=== PATIENT | female | born 1935 | race Caucasian/White ===

== ENCOUNTER 2017-10-05 14:33 | Outpatient (CLI) | payer MEDICARE | END 2017-10-05 14:34 | disposition home or self-care (01) | LOC: BICMAMMO 14:33 | PROVIDERS: ATTEND Nurse Practitioner Family | DX: Z13.820 Encounter for screening for osteoporosis (principal) | CPT/HCPCS: 77080 ==

== ENCOUNTER 2022-02-28 09:39 | Outpatient (CLI) | payer MEDICARE ==
[~2022-02-28 09:39] MED LIST: Magnevist 469MG/ML 20 ML VIAL ONE
== END 2022-02-28 09:40 | disposition home or self-care (01) ==
LOC: BICMRI 09:39
PROVIDERS: ATTEND Orthopaedic Surgery Hand Surgery
DX: M65.221 Calcific tendinitis, right upper arm (principal); D49.2 Neoplasm of unspecified behavior of bone, soft tissue, and skin
CPT/HCPCS: 82565; A9579

== ENCOUNTER 2023-01-10 13:36 | Outpatient (CLI) | payer MEDICARE | END 2023-01-10 13:37 | disposition home or self-care (01) | LOC: RAD-FRANK 13:36 | PROVIDERS: ATTEND Nurse Practitioner Family | DX: R05.2 Subacute cough (principal); R91.8 Other nonspecific abnormal finding of lung field; I51.7 Cardiomegaly | CPT/HCPCS: 71046 ==

== ENCOUNTER 2023-01-13 00:57 | Inpatient (IN) | payer MEDICARE ==
[2023-01-13] MEDS ORDERED: Albuterol 2.5 MG/0.5 ML NEB ONE ×2 (01:57→01:58)
[2023-01-13 02:21] LABS: #Basophils 0.1 thou/uL (0.0-0.2); #Eosinphils 0.1 thou/uL (0.0-0.7); #Monocytes 0.8 thou/uL (0.11-0.59); #Neutrophils 7.8 thou/uL (1.40-6.50); %Basophils 0.9 % (0.0-1.0); %Eosinophils 1.2 % (0.0-10.0); %Lymphocytes 18.3 % (21.0-51.0); %Monocytes 7.1 % (0.0-10.0); %Neutrophils 72.5 % (42.0-75.0); Hemoglobin 14.3 g/dL (12.0-16.0); Mean Corpuscular HGB CONC 33.5 g/dL (32.0-36.0); Mean Corpuscular Hemoglobin 29.7 pg (27.0-31.0); Mean Corpuscular Volume 88.7 fl (78.0-98.0); Mean Platelet Volume 8.9 fL (7.4-10.4); Platelet Count 208 10x3/uL (130-400); RBC Distribution Width 13.6 % (11.5-14.5); Red Blood Cell (RBC) Count 4.81 mill/uL (4.20-5.40); White Blood Cell (WBC) Count 10.8 10x3/uL (4.8-10.8)
[2023-01-13 02:34] LABS: ALT (SGPT) 80 U/L (8-55); AST (SGOT) 91 U/L (5-34); Alkaline Phosphatase 69 U/L (40-110); Anion Gap 15 mmol/L (10-20); BUN (Urea Nitrogen) 20 mg/dL (9.8-20.1); Bilirubin, Total 0.6 mg/dL (0.2-1.2); Calc. Creatinine Clearance 0 mL/min (70-130); Calcium 9.3 mg/dL (7.8-10.44); Carbon Dioxide 25 mmol/L (23-31); Chloride 104 mmol/L (98-107); Estimated GFR 70; Globulin 3.1 g/dL (2.4-3.5); Glucose 126 mg/dL (83-110); Potassium 4.7 mmol/L (3.5-5.1); Protein, Total 7.1 g/dL (5.8-8.1); Sodium 139 mmol/L (136-145)
[2023-01-13] MEDS ORDERED: Furosemide 40 MG/4 ML VIAL ONE (04:08)
[2023-01-13] MEDS ORDERED: Ondansetron ODT 4 MG TAB PO PRN (05:12)
[2023-01-13] MEDS ORDERED: Acetaminophen 325 MG TAB PO PRN (05:12)
[2023-01-13] MEDS ORDERED: Senokot S 8.6-50 MG TAB PO PRN (05:12)
[2023-01-13 07:21] LABS: Troponin I Less than 0.010 ng/mL (< 0.028)
[2023-01-13] MEDS ORDERED: Aspirin Chewable 81 MG TAB ONE (09:20)
[2023-01-13] MEDS ORDERED: Famotidine 20 MG TAB ONE (09:20)
[2023-01-13] MEDS: Apixaban 5 MG TAB PO SCH ×2 (09:48→19:54)
[2023-01-13] MEDS: Famotidine 20 MG TAB PO SCH ×2 (09:49→19:54)
[2023-01-13] MEDS: Lisinopril 2.5 MG TAB PO SCH (09:49)
[2023-01-13] MEDS: Aspirin Chewable 81 MG TAB PO SCH (09:49)
[2023-01-13] MEDS: Carvedilol 6.25 MG TAB PO SCH ×2 (09:49→19:55)
[2023-01-13 10:21] LABS: Troponin I Less than 0.010 ng/mL (< 0.028)
[2023-01-13 12:45] LABS: SARS-CoV-2 NAA Rapid Test Not Detected (NotDetected)
[2023-01-13] MEDS ORDERED: Iopamidol-370 76% 500 ML MDV (1 ML CHARGE) ONE (14:08)
[2023-01-13] MEDS: Azithromycin 250 MG TAB PO SCH (18:09)
[2023-01-13 19:47] LABS: Legionella Urinary Ag Negative (Negative); Strep pneumo Urine Ag NEGATIVE (NEGATIVE)
[2023-01-14 05:29] LABS: #Basophils 0.1 thou/uL (0.0-0.2); #Eosinphils 0.1 thou/uL (0.0-0.7); #Lymphocytes 2.3 thou/uL (1.20-3.40); #Monocytes 0.7 thou/uL (0.11-0.59); #Neutrophils 4.4 thou/uL (1.40-6.50); %Eosinophils 1.5 % (0.0-10.0); %Lymphocytes 29.9 % (21.0-51.0); %Monocytes 8.6 % (0.0-10.0); Hemoglobin 13.6 g/dL (12.0-16.0); Mean Corpuscular HGB CONC 33.4 g/dL (32.0-36.0); Mean Corpuscular Hemoglobin 29.5 pg (27.0-31.0); Mean Corpuscular Volume 88.2 fl (78.0-98.0); Mean Platelet Volume 8.4 fL (7.4-10.4); Platelet Count 190 10x3/uL (130-400); RBC Distribution Width 13.3 % (11.5-14.5); Red Blood Cell (RBC) Count 4.63 mill/uL (4.20-5.40); White Blood Cell (WBC) Count 7.5 10x3/uL (4.8-10.8)
[2023-01-14 05:34] LABS: Hemoglobin A1c 5.4 % (4.0-6.0)
[2023-01-14 05:54] LABS: ALT (SGPT) 50 U/L (8-55); AST (SGOT) 36 U/L (5-34); Albumin 3.6 g/dL (3.4-4.8); Alkaline Phosphatase 59 U/L (40-110); Anion Gap 12 mmol/L (10-20); BUN (Urea Nitrogen) 15 mg/dL (9.8-20.1); Bilirubin, Direct 0.3 mg/dL (0.1-0.3); Bilirubin, Total 0.7 mg/dL (0.2-1.2); Calc. Creatinine Clearance 56 mL/min (70-130); Calcium 8.9 mg/dL (7.8-10.44); Carbon Dioxide 26 mmol/L (23-31); Cardiac Risk 3.2 (Less than 4.5); Chloride 105 mmol/L (98-107); Cholesterol 189 mg/dl (< 200 Desired); Estimated GFR 78; Glucose 97 mg/dL (83-110); HDL Cholesterol 60 mg/dL (>60 Neg Risk); LDL Cholesterol, Calculated 110 mg/dL; Magnesium 2.2 mg/dL (1.6-2.6); Potassium 3.6 mmol/L (3.5-5.1); Protein, Total 6.2 g/dL (5.8-8.1); Sodium 139 mmol/L (136-145); Triglycerides 95 mg/dL (Less than 150)
[2023-01-14 06:11] LABS: HBCM Index 0.08 S/CO (0-0.79); HBSAg Index 0.22 S/CO (0-0.99); Hep A IgM AB Non-Reactive (NonReactive); Hep B Surf Ag Non-Reactive S/CO (NonReactive); Hepatitis B Core IgM Abs Non-Reactive (NonReactive)
[2023-01-14] MEDS: Lisinopril 2.5 MG TAB PO SCH (09:46)
[2023-01-14] MEDS: Aspirin Chewable 81 MG TAB PO SCH (09:47)
[2023-01-14] MEDS: Carvedilol 6.25 MG TAB PO SCH ×2 (09:47→21:34)
[2023-01-14] MEDS: Famotidine 20 MG TAB PO SCH ×2 (09:48→21:34)
[2023-01-14] MEDS: Montelukast Sodium 10 mg Tablet PO SCH (09:48)
[2023-01-14] MEDS: Apixaban 5 MG TAB PO SCH ×2 (09:49→21:34)
[2023-01-14] MEDS: Furosemide 20 MG/2 ML VIAL SLOW IVP SCH (09:50)
[2023-01-14 12:12] VITALS: BMI 25.8
[2023-01-14] MEDS ORDERED: Albuterol HFA (OR) 200 PUFF INH INH PRN (13:45)
[2023-01-14] MEDS: Azithromycin 250 MG TAB PO SCH (16:05)
[2023-01-14] MEDS: Latanoprost 0.005% Ophth Soln 2.5 ml Bottle EA EYE SCH (21:35)
[2023-01-15 05:12] LABS: #Basophils 0.1 thou/uL (0.0-0.2); #Eosinphils 0.2 thou/uL (0.0-0.7); #Lymphocytes 2.8 thou/uL (1.20-3.40); #Monocytes 0.7 thou/uL (0.11-0.59); #Neutrophils 4.5 thou/uL (1.40-6.50); %Eosinophils 1.8 % (0.0-10.0); %Lymphocytes 33.9 % (21.0-51.0); %Monocytes 8.8 % (0.0-10.0); %Neutrophils 54.5 % (42.0-75.0); Hemoglobin 14.3 g/dL (12.0-16.0); Mean Corpuscular HGB CONC 32.8 g/dL (32.0-36.0); Mean Corpuscular Volume 88.3 fl (78.0-98.0); Mean Platelet Volume 8.5 fL (7.4-10.4); Platelet Count 211 10x3/uL (130-400); RBC Distribution Width 13.2 % (11.5-14.5); Red Blood Cell (RBC) Count 4.95 mill/uL (4.20-5.40); White Blood Cell (WBC) Count 8.2 10x3/uL (4.8-10.8)
[2023-01-15] MEDS: Levothyroxine Sodium 75 MCG TAB PO SCH (05:25)
[2023-01-15 05:32] LABS: Anion Gap 11 mmol/L (10-20); BUN (Urea Nitrogen) 18 mg/dL (9.8-20.1); Calc. Creatinine Clearance 48 mL/min (70-130); Calcium 8.8 mg/dL (7.8-10.44); Carbon Dioxide 27 mmol/L (23-31); Chloride 105 mmol/L (98-107); Estimated GFR 69; Glucose 104 mg/dL (83-110); Magnesium 2.1 mg/dL (1.6-2.6); Potassium 3.6 mmol/L (3.5-5.1); Sodium 139 mmol/L (136-145)
[2023-01-15] MEDS: Montelukast Sodium 10 mg Tablet PO SCH (09:41)
[2023-01-15] MEDS: Lisinopril 2.5 MG TAB PO SCH (09:41)
[2023-01-15] MEDS: Furosemide 20 MG/2 ML VIAL SLOW IVP SCH (09:42)
[2023-01-15] MEDS: Apixaban 5 MG TAB PO SCH ×2 (09:42→21:06)
[2023-01-15] MEDS: Famotidine 20 MG TAB PO SCH ×2 (09:42→21:06)
[2023-01-15] MEDS: Aspirin Chewable 81 MG TAB PO SCH (09:42)
[2023-01-15] MEDS: Carvedilol 6.25 MG TAB PO SCH ×2 (09:42→21:07)
[2023-01-15] MEDS: Azithromycin 250 MG TAB PO SCH (16:13)
[2023-01-15] MEDS: Latanoprost 0.005% Ophth Soln 2.5 ml Bottle EA EYE SCH (21:07)
[2023-01-16 05:02] LABS: #Basophils 0.1 thou/uL (0.0-0.2); #Eosinphils 0.1 thou/uL (0.0-0.7); #Lymphocytes 2.8 thou/uL (1.20-3.40); #Monocytes 0.6 thou/uL (0.11-0.59); #Neutrophils 4.2 thou/uL (1.40-6.50); %Basophils 1.2 % (0.0-1.0); %Eosinophils 1.8 % (0.0-10.0); %Lymphocytes 35.5 % (21.0-51.0); %Monocytes 7.8 % (0.0-10.0); %Neutrophils 53.7 % (42.0-75.0); Hemoglobin 14.7 g/dL (12.0-16.0); Mean Corpuscular Hemoglobin 28.1 pg (27.0-31.0); Mean Corpuscular Volume 87.6 fl (78.0-98.0); Mean Platelet Volume 8.5 fL (7.4-10.4); Platelet Count 215 10x3/uL (130-400); RBC Distribution Width 13.2 % (11.5-14.5); Red Blood Cell (RBC) Count 5.22 mill/uL (4.20-5.40); White Blood Cell (WBC) Count 7.9 10x3/uL (4.8-10.8)
[2023-01-16 05:25] LABS: Anion Gap 13 mmol/L (10-20); BUN (Urea Nitrogen) 23 mg/dL (9.8-20.1); Calc. Creatinine Clearance 48 mL/min (70-130); Calcium 8.9 mg/dL (7.8-10.44); Carbon Dioxide 26 mmol/L (23-31); Chloride 104 mmol/L (98-107); Estimated GFR 69; Glucose 98 mg/dL (83-110); Magnesium 2.3 mg/dL (1.6-2.6); Potassium 3.7 mmol/L (3.5-5.1); Sodium 139 mmol/L (136-145)
[2023-01-16] MEDS: Levothyroxine Sodium 75 MCG TAB PO SCH (05:39)
[2023-01-16] MEDS: Aspirin Chewable 81 MG TAB PO SCH (09:09)
[2023-01-16] MEDS: Carvedilol 6.25 MG TAB PO SCH (09:09)
[2023-01-16] MEDS: Famotidine 20 MG TAB PO SCH (09:09)
[2023-01-16] MEDS: Apixaban 5 MG TAB PO SCH (09:09)
[2023-01-16] MEDS: Furosemide 20 MG/2 ML VIAL SLOW IVP SCH (09:10)
[2023-01-16] MEDS: Lisinopril 2.5 MG TAB PO SCH (09:10)
[2023-01-16] MEDS: Montelukast Sodium 10 mg Tablet PO SCH (11:10)
[2023-01-16 11:27] VITALS: BP 137/88; TEMP 97.7
[2023-01-17 12:07] LABS: Hep C IgG Ab Non-Reactive (NonReactive); Hep C Index 0.09 S/CO (0-0.79)
== END 2023-01-16 15:58 | disposition home or self-care (01) | DRG 291 ==
LOC: ERS 00:57 → ERHOLD 04:24 → 2NO 14:17
PROVIDERS: ADMIT Student in an Organized Health Care Education/Training Program; ATTEND Family Medicine
DX: I11.0 Hypertensive heart disease with heart failure (principal); I50.21 Acute systolic (congestive) heart failure; I48.0 Paroxysmal atrial fibrillation; E03.9 Hypothyroidism, unspecified; I34.0 Nonrheumatic mitral (valve) insufficiency; R73.9 Hyperglycemia, unspecified; Z88.0 Allergy status to penicillin; Z79.899 Other long term (current) drug therapy; Z79.890 Hormone replacement therapy
CPT/HCPCS: 36415; 71045; 71046; 71275; 76705; 80048; 80053; 80061; 80074; 80076; 83036; 83735; 83880; 84145; 84443; 84484; 85025; 87081; 87449; 87899; 93005; 93306; 93798; 94640; 96374; J1940; J7611; Q9967

== ENCOUNTER 2023-06-30 07:56 | Day surgery (SDC) | payer MEDICARE ==
[2023-06-28 12:07] VITALS: BMI 24.4
[2023-06-28 12:28] LABS: Anion Gap 15 mmol/L (10-20); BUN (Urea Nitrogen) 20 mg/dL (9.8-20.1); Calc. Creatinine Clearance 33 mL/min (70-130); Calcium 8.7 mg/dL (7.8-10.44); Carbon Dioxide 29 mmol/L (23-31); Chloride 101 mmol/L (98-107); Estimated GFR 45; Glucose 102 mg/dL (83-110); Potassium 4.2 mmol/L (3.5-5.1); Sodium 141 mmol/L (136-145)
[2023-06-28 12:30] LABS: Hemoglobin 12.3 g/dL (12.0-15.5); Mean Corpuscular HGB CONC 31.5 g/dL (32.0-36.0); Mean Corpuscular Hemoglobin 28.1 pg (27.0-33.0); Mean Corpuscular Volume 89.2 fl (81.6-98.3); Mean Platelet Volume 9.5 fl (7.4-10.4); Platelet Count 259 10x3/uL (150-450); RBC Distribution Width 13.8 % (11.5-14.5); Red Blood Cell (RBC) Count 4.37 10x6/uL (3.90-5.03); White Blood Cell (WBC) Count 6.7 10x3/uL (3.5-10.5)
[2023-06-28 12:53] LABS: INR-International Normal Ratio 1.1; PTT 32.4 sec (22.0-33.0)
[2023-06-30] MEDS ORDERED: Lidocaine 1% (PF) 30 ML VIAL ONE (08:31)
[2023-06-30] MEDS ORDERED: Heparin 10,000 UNITS/ 10 ML VIAL ONE (08:31)
[2023-06-30] MEDS ORDERED: DOPamine 400 MG/D5W 250 ML 250 ML ONE (08:31)
[2023-06-30] MEDS ORDERED: Protamine Sulfate 50 MG/5 ML VIAL ONE (08:31)
[2023-06-30] MEDS ORDERED: Midazolam HCl 2 mg/2 ml Vial ONE (09:25)
[2023-06-30] MEDS ORDERED: Dexmedetomidine 200 MCG/2 ML VIAL ONE (09:25)
[2023-06-30] MEDS ORDERED: fentaNYL 50 mcg/mL 1 mL Vial ONE (09:25)
[2023-06-30] MEDS ORDERED: Ketamine 50 MG/ML (10ML VIAL) ONE (09:25)
[2023-06-30] MEDS ORDERED: Lidocaine 1% PF 5 ML VIAL ONE (10:09)
[2023-06-30] MEDS ORDERED: Ondansetron PF 4 MG/2 ML Vial ONE (10:09)
[2023-06-30] MEDS ORDERED: PHENYLEPHRINE-NS 100 MCG/ML 10 ML SYRINGE ONE (10:09)
[2023-06-30] MEDS ORDERED: PROPOFOL 200 MG/20 ML VIAL ONE (10:09)
== END 2023-06-30 15:42 | disposition home or self-care (01) ==
LOC: SDC 07:56
PROVIDERS: ATTEND Internal Medicine Cardiovascular Disease
PROC: 02583ZZ Destruction of Conduction Mechanism, Percutaneous Approach (ICD-10-PCS; principal; 2023-06-30)
DX: I48.19 Other persistent atrial fibrillation (principal); I48.4 Atypical atrial flutter; I11.0 Hypertensive heart disease with heart failure; I50.30 Unspecified diastolic (congestive) heart failure; Z79.01 Long term (current) use of anticoagulants; I08.3 Combined rheumatic disorders of mitral, aortic and tricuspid valves; Z95.0 Presence of cardiac pacemaker; Z79.890 Hormone replacement therapy; Z79.899 Other long term (current) drug therapy; Z88.0 Allergy status to penicillin
CPT/HCPCS: 80048; 85027; 85610; 85730; 93005; 93650; C1760; J3010; 36556; 93613; C1894; J1265; J1644; J2001; J2250; J2405; J2704; J2720

== ENCOUNTER 2023-08-02 12:01 | Inpatient (IN) | payer MEDICARE ==
[~2023-08-02 12:01] MED LIST changes: +Iopamidol-370 76% 500 ML MDV (1 ML CHARGE) ONE; -Magnevist 469MG/ML 20 ML VIAL ONE
[2023-08-02 12:29] LABS: #Monocytes 0.8 thou/uL (0.11-0.59); #Neutrophils 9.4 thou/uL (1.40-6.50); %Basophils 0.2 % (0.0-1.0); %Eosinophils 0.1 % (0.0-10.0); %Neutrophils 83.2 % (42.0-75.0); Hematocrit 40.3 % (36.0-47.0); Hemoglobin 12.6 g/dL (12.0-16.0); Mean Corpuscular HGB CONC 31.3 g/dL (32.0-36.0); Mean Corpuscular Hemoglobin 27.5 pg (27.0-31.0); Mean Corpuscular Volume 87.8 fl (78.0-98.0); Mean Platelet Volume 9.5 fL (7.4-10.4); Platelet Count 312 10x3/uL (130-400); RBC Distribution Width 14.1 % (11.5-14.5); Red Blood Cell (RBC) Count 4.59 mill/uL (4.20-5.40); White Blood Cell (WBC) Count 11.2 10x3/uL (4.8-10.8)
[2023-08-02 13:00] LABS: Troponin I 0.013 ng/mL (< 0.028)
[2023-08-02 13:04] LABS: ALT (SGPT) 28 U/L (8-55); AST (SGOT) 25 U/L (5-34); Albumin 4.5 g/dL (3.4-4.8); Alkaline Phosphatase 77 U/L (40-110); Anion Gap 16 mmol/L (10-20); BUN (Urea Nitrogen) 55 mg/dL (9.8-20.1); Bilirubin, Total 0.7 mg/dL (0.2-1.2); Calc. Creatinine Clearance 0 mL/min (70-130); Calcium 9.5 mg/dL (7.8-10.44); Carbon Dioxide 33 mmol/L (23-31); Chloride 88 mmol/L (98-107); Estimated GFR 28; Globulin 2.8 g/dL (2.4-3.5); Glucose 145 mg/dL (83-110); Potassium 4.7 mmol/L (3.5-5.1); Protein, Total 7.3 g/dL (5.8-8.1); Sodium 132 mmol/L (136-145)
[2023-08-02 14:31] LABS: Actual Bicarbonate (HCO3v) 30.1 mEq/L (22-28); Base Excess 5.3 mEq/L (-2.0 to +3.0); Chloride (VBG) 90 mmol/L (98-106); Hematocrit-VBG 37 % (36.0-47.0); Hemoglobin (Hb) 12.5 g/dL (11.7-16.1); Potassium (VBG) 4.58 mmol/L (3.70-5.30); Sodium 129 mmol/L (133-146); pH (venous) 7.445 (7.32-7.43)
[2023-08-02] MEDS ORDERED: Furosemide 40 MG/4 ML VIAL ONE (14:35)
[2023-08-02 14:40] LABS: PTT 36.8 sec (22.9-36.1); Prothrombin Time 25.3 sec (12.0-14.7)
[2023-08-02 14:47] LABS: INR-International Normal Ratio 2.2
[2023-08-02] MEDS ORDERED: Bupivacaine PF 0.5% 30 ML VIAL ONE (16:54)
[2023-08-02] MEDS ORDERED: [UNRECOGNIZED DRUG - OTHER] IV SCH (17:00)
[2023-08-02] MEDS ORDERED: HUMAN PROTHROMBIN COMPLX IV SCH (17:00)
[2023-08-02] MEDS ORDERED: HUM PROTHROMBIN CPLX IV SCH (17:00)
[2023-08-02] MEDS ORDERED: Midazolam HCl 2 mg/2 ml Vial ONE (17:01)
[2023-08-02] MEDS ORDERED: KETAMINE 100 MG/ML (5ML VIAL) ONE (17:01)
[2023-08-02] MEDS ORDERED: fentaNYL PF 100 MCG/2 ML SYRINGE ONE (17:01)
[2023-08-02 17:03] LABS: Magnesium 2.4 mg/dL (1.6-2.6)
[2023-08-02 17:08] LABS: Troponin I 0.013 ng/mL (< 0.028)
[2023-08-02] MEDS ORDERED: PHENYLEPHRINE-NS 100 MCG/ML 10 ML SYRINGE ONE (17:19)
[2023-08-02] MEDS ORDERED: ePHEDrine Sulfate 50 MG/10 ML VIAL ONE (17:19)
[2023-08-02] MEDS ORDERED: Ondansetron PF 4 MG/2 ML Vial ONE (17:19)
[2023-08-02] MEDS ORDERED: Aminocaproic Acid 5 GM/20 ML VIAL ONE (17:19)
[2023-08-02] MEDS ORDERED: Potassium Chloride 60 MEQ/30 ML VIAL ONE (17:19)
[2023-08-02] MEDS ORDERED: Vancomycin 1 GM VIAL ONE (17:19)
[2023-08-02] MEDS ORDERED: Sodium Bicarb 50 MEQ/50 ML VIAL ONE (17:19)
[2023-08-02] MEDS ORDERED: Protamine Sulfate 250 MG/25 ML VIAL ONE (17:19)
[2023-08-02] MEDS ORDERED: Albuterol HFA (OR) 200 PUFF INH ONE (17:19)
[2023-08-02] MEDS ORDERED: Rocuronium Bromide 10 MG/ML (10ML VIAL) ONE (17:19)
[2023-08-02] MEDS ORDERED: PROPOFOL 200 MG/20 ML VIAL ONE (17:19)
[2023-08-02] MEDS ORDERED: Succinylcholine 200 MG/10 ml SYRINGE FS ONE (17:19)
[2023-08-02] MEDS ORDERED: Heparin 30,000 units/30 ml VIAL ONE (17:19)
[2023-08-02] MEDS ORDERED: NOREPINEPHRINE 8 MG/250 ML-D5W 250 ML IVPB PRN (18:28)
[2023-08-02] MEDS ORDERED: Ipratropium/Albuterol 3 ML NEB NEB PRN (18:28)
[2023-08-02] MEDS ORDERED: Ventilator Sedation Protocol 1 EACH FS SCH (18:30)
[2023-08-02] MEDS ORDERED: Ventilator Sedation Protocol 1 EACH FS ONE (18:32)
[2023-08-02] MEDS ORDERED: DISCONTINUE PREVIOUS NARCOTIC PAIN MEDICATIONS AND BENZODIAZEPINES FS SCH (19:00)
[2023-08-02] MEDS ORDERED: Morphine 2 MG/ML VIAL SLOW IVP PRN (19:00)
[2023-08-02] MEDS ORDERED: Fentanyl BOLUS 250 ML IVPB PRN (19:00)
[2023-08-02] MEDS ORDERED: Propofol BOLUS 1,000 MG/100 ML VIAL IV PRN (19:00)
[2023-08-02] MEDS ORDERED: Propofol 1,000 MG/100 ML VIAL IV PRN (19:00)
[2023-08-02 19:01] LABS: Actual Bicarbonate (HCO3a) 26.3 mEq/L (22-28); Base Excess (BEa) 5.9 mEq/L (-2.0 to +3.0); CO2 Tension 25.2 mmHg (35.0-45.0); Calcium, Ionized (arterial) 0.99 mmol/L (1.12-1.30); Carboxyhemoglobin (COHb) 0.5 gm% (0.0-3.0); Hematocrit-ABG 31 % (36.0-47.0); Hemoglobin (Hb) 10.6 g/dL (12.0-16.0); O2 Tension (PaO2), arterial 492.4 mmHg (> 60.0); Potassium - ABG Lab 3.65 mmol/L (3.70-5.30)
[2023-08-02 19:04] LABS: Puncture Site LBA; pH, Arterial 7.637 (7.35-7.45)
[2023-08-02] MEDS: Sodium Chloride 0.9% 1,000 ML IV SCH (19:05)
[2023-08-02] MEDS ORDERED: Calcium Chloride 1 GM/10 ML Abboject SYRINGE IVP SCH (19:30)
[2023-08-02] MEDS ORDERED: Electrolyte Replacement Protocol 1 EACH IVPB PRN (19:44)
[2023-08-02] MEDS ORDERED: Fentanyl 100 MCG/2 ML VIAL SLOW IVP SCH (19:45)
[2023-08-02 20:00] LABS: #Monocytes 0.5 thou/uL (0.11-0.59); #Neutrophils 5.5 thou/uL (1.40-6.50); %Basophils 0.1 % (0.0-1.0); %Eosinophils 0.1 % (0.0-10.0); %Lymphocytes 10.8 % (21.0-51.0); %Monocytes 6.6 % (0.0-10.0); %Neutrophils 81.7 % (42.0-75.0); Hematocrit 35.2 % (36.0-47.0); Hemoglobin 11.2 g/dL (12.0-16.0); Mean Corpuscular HGB CONC 31.8 g/dL (32.0-36.0); Mean Corpuscular Hemoglobin 27.6 pg (27.0-31.0); Mean Corpuscular Volume 86.7 fl (78.0-98.0); Mean Platelet Volume 9.9 fL (7.4-10.4); Red Blood Cell (RBC) Count 4.06 mill/uL (4.20-5.40); White Blood Cell (WBC) Count 6.8 10x3/uL (4.8-10.8)
[2023-08-02 20:01] LABS: Platelet Count 208 10x3/uL (130-400)
[2023-08-02 20:06] LABS: INR-International Normal Ratio 1.8; PTT 35.3 sec (22.9-36.1); Prothrombin Time 21.9 sec (12.0-14.7)
[2023-08-02 20:11] LABS: Troponin I 0.012 ng/mL (< 0.028)
[2023-08-02] MEDS ORDERED: Acetaminophen 650 MG/20.3 ML UDCUP PO PRN (20:27)
[2023-08-02 20:41] LABS: ALT (SGPT) 24 U/L (8-55); AST (SGOT) 30 U/L (5-34); Albumin 3.2 g/dL (3.4-4.8); Alkaline Phosphatase 58 U/L (40-110); Anion Gap 18 mmol/L (10-20); BUN (Urea Nitrogen) 45 mg/dL (9.8-20.1); Bilirubin, Total 0.4 mg/dL (0.2-1.2); Calc. Creatinine Clearance 0 mL/min (70-130); Calcium 8.1 mg/dL (7.8-10.44); Carbon Dioxide 24 mmol/L (23-31); Chloride 95 mmol/L (98-107); Estimated GFR 40; Globulin 1.9 g/dL (2.4-3.5); Glucose 131 mg/dL (83-110); Potassium 4.1 mmol/L (3.5-5.1); Protein, Total 5.1 g/dL (5.8-8.1); Sodium 133 mmol/L (136-145)
[2023-08-02] MEDS: Fentanyl CADD 100 ML IV SCH (20:57)
[2023-08-02] MEDS: Famotidine/PF 20 mg/2ml Vial SLOW IVP SCH (21:08)
[2023-08-02] MEDS ORDERED: NOREPINEPHRINE 8 MG/250 ML-D5W 250 ML ONE (21:23)
[2023-08-02 21:55] LABS: Bacteria/HPF None Seen HPF (None Seen); Bilirubin Negative (Negative); Blood, Urine Negative (Negative); Clarity Clear (Clear); Glucose, Urine (Dipstick) Normal (Negative); Ketone, Urine Negative (Negative); Leukocyte Negative Leu/uL (Negative); Nitrite Negative (Negative); Protein, Urine (Dipstick) Negative (Neg-Trace); RBC/HPF 0-3 HPF (0-3); Specific Gravity, Urine 1.009 (1.002-1.036); Squamous Epithelial None Seen HPF (0-3); Urobilinogen Normal mg/dL (Less than 2); WBC/HPF 0-3 HPF (0-3)
[2023-08-02] MEDS ORDERED: Albumin 5% 500 ML ONE (22:55)
[2023-08-02] MEDS ORDERED: EPINEPHrine 4 MG in Dextrose 5% in Water 250 ML IV SCH (23:00)
[2023-08-02] MEDS ORDERED: Sodium Chloride 0.9% 500 ML IVPB SCH (23:00)
[2023-08-02 23:05] LABS: #Monocytes 1.5 thou/uL (0.11-0.59); #Neutrophils 14.2 thou/uL (1.40-6.50); %Basophils 0.2 % (0.0-1.0); %Eosinophils 0.1 % (0.0-10.0); %Monocytes 7.7 % (0.0-10.0); %Neutrophils 73.5 % (42.0-75.0); Hematocrit 33.4 % (36.0-47.0); Hemoglobin 10.7 g/dL (12.0-16.0); Mean Corpuscular Hemoglobin 27.7 pg (27.0-31.0); Mean Corpuscular Volume 86.5 fl (78.0-98.0); Mean Platelet Volume 9.9 fL (7.4-10.4); Platelet Count 275 10x3/uL (130-400); RBC Distribution Width 14.1 % (11.5-14.5); Red Blood Cell (RBC) Count 3.86 mill/uL (4.20-5.40)
[2023-08-02 23:09] LABS: White Blood Cell (WBC) Count 19.2 10x3/uL (4.8-10.8)
[2023-08-02 23:10] LABS: Lactic Acid 2.8 mmol/L (0.5-2.2)
[2023-08-02 23:15] LABS: ALT (SGPT) 23 U/L (8-55); AST (SGOT) 25 U/L (5-34); Albumin 2.9 g/dL (3.4-4.8); Alkaline Phosphatase 51 U/L (40-110); Anion Gap 15 mmol/L (10-20); BUN (Urea Nitrogen) 43 mg/dL (9.8-20.1); Bilirubin, Total 0.5 mg/dL (0.2-1.2); Calc. Creatinine Clearance 0 mL/min (70-130); Carbon Dioxide 28 mmol/L (23-31); Chloride 96 mmol/L (98-107); Estimated GFR 38; Globulin 1.7 g/dL (2.4-3.5); Glucose 141 mg/dL (83-110); Protein, Total 4.6 g/dL (5.8-8.1); Sodium 135 mmol/L (136-145)
[2023-08-02] MEDS ORDERED: Vasopressin 20 UNITS, Admixture Fee 1 EACH in Sodium Chloride 0.9% 50 ML IV SCH (23:45)
[2023-08-02 23:57] LABS: Actual Bicarbonate (HCO3a) 25.1 mEq/L (22-28); Base Excess (BEa) -1.4 mEq/L (-2.0 to +3.0); CO2 Tension 51.6 mmHg (35.0-45.0); Calcium, Ionized (arterial) 1.06 mmol/L (1.12-1.30); Carboxyhemoglobin (COHb) 0.4 gm% (0.0-3.0); Hematocrit-ABG 26 % (36.0-47.0); O2 Tension (PaO2), arterial 109.8 mmHg (> 60.0); Potassium - ABG Lab 3.52 mmol/L (3.70-5.30); pH, Arterial 7.305 (7.35-7.45)
[2023-08-02 23:58] LABS: Puncture Site LBA
[2023-08-03 00:06] LABS: INR-International Normal Ratio 2.2; Prothrombin Time 25.2 sec (12.0-14.7)
[2023-08-03] MEDS ORDERED: Calcium Chloride 1 GM/10 ML Abboject SYRINGE ONE (00:50)
[2023-08-03] MEDS ORDERED: Vecuronium 10 MG VIAL ONE (00:50)
[2023-08-03] MEDS ORDERED: Rocuronium Bromide 10 MG/ML (10ML VIAL) ONE (00:50)
[2023-08-03] MEDS ORDERED: Magnesium 2 GM/50 ML(in water) 2 GM in Premix 1 BAG IVPB SCH (01:00)
[2023-08-03 03:25] LABS: INR-International Normal Ratio 3.8; PTT 45.2 sec (22.9-36.1); Prothrombin Time 39.6 sec (12.0-14.7)
[2023-08-03 04:00] LABS: Actual Bicarbonate (HCO3a) 21.6 mEq/L (22-28); Base Excess (BEa) 0.5 mEq/L (-2.0 to +3.0); CO2 Tension 25.3 mmHg (35.0-45.0); Calcium, Ionized (arterial) 1.02 mmol/L (1.12-1.30); Carboxyhemoglobin (COHb) 0.9 gm% (0.0-3.0); Hematocrit-ABG 38 % (36.0-47.0); Hemoglobin (Hb) 12.8 g/dL (12.0-16.0); O2 Tension (PaO2), arterial 223.1 mmHg (> 60.0); Potassium - ABG Lab 3.61 mmol/L (3.70-5.30); pH, Arterial 7.549 (7.35-7.45)
[2023-08-03 04:01] LABS: ALV-art Gradient 173.075 mmHg (0-20); Puncture Site RBA
[2023-08-03 04:57] LABS: #Basophils 0.1 thou/uL (0.0-0.2); #Monocytes 1.8 thou/uL (0.11-0.59); #Neutrophils 19.2 thou/uL (1.40-6.50); %Basophils 0.2 % (0.0-1.0); %Eosinophils 0.1 % (0.0-10.0); %Lymphocytes 7.5 % (21.0-51.0); %Monocytes 7.9 % (0.0-10.0); %Neutrophils 83.3 % (42.0-75.0); Hematocrit 34.9 % (36.0-47.0); Hemoglobin 11.9 g/dL (12.0-16.0); Mean Corpuscular HGB CONC 34.1 g/dL (32.0-36.0); Mean Corpuscular Hemoglobin 29.1 pg (27.0-31.0); Mean Corpuscular Volume 85.3 fl (78.0-98.0); Mean Platelet Volume 9.7 fL (7.4-10.4); Platelet Count 169 10x3/uL (130-400); RBC Distribution Width 13.9 % (11.5-14.5); Red Blood Cell (RBC) Count 4.09 mill/uL (4.20-5.40); White Blood Cell (WBC) Count 23.1 10x3/uL (4.8-10.8)
[2023-08-03 05:41] LABS: ALT (SGPT) 14 U/L (8-55); AST (SGOT) 24 U/L (5-34); Albumin 2.5 g/dL (3.4-4.8); Alkaline Phosphatase 33 U/L (40-110); Anion Gap 15 mmol/L (10-20); BUN (Urea Nitrogen) 35 mg/dL (9.8-20.1); Calc. Creatinine Clearance 0 mL/min (70-130); Calcium 7.6 mg/dL (7.8-10.44); Carbon Dioxide 23 mmol/L (23-31); Chloride 104 mmol/L (98-107); Estimated GFR 47; Glucose 192 mg/dL (83-110); Potassium 3.7 mmol/L (3.5-5.1); Protein, Total 3.5 g/dL (5.8-8.1); Sodium 138 mmol/L (136-145)
[2023-08-03 05:43] LABS: D-Dimer Test 0.69 *mcg/mL (0.27-0.43)
[2023-08-03] MEDS ORDERED: Calcium Gluc 4.6 MEQ/10 ML (100 MG/ML) SLOW IVP ONE (06:11)
[2023-08-03] MEDS ORDERED: CALCIUM GLUC 1 GM/NS 50 ML 1 GM in Premix 1 BAG IVPB SCH (06:30)
[2023-08-03 07:22] LABS: Actual Bicarbonate (HCO3a) 22.7 mEq/L (22-28); Base Excess (BEa) 0.7 mEq/L (-2.0 to +3.0); Calcium, Ionized (arterial) 0.94 mmol/L (1.12-1.30); Hematocrit-ABG 33 % (36.0-47.0); Hemoglobin (Hb) 11.3 g/dL (12.0-16.0); Potassium - ABG Lab 3.84 mmol/L (3.70-5.30); Puncture Site ALINE; pH, Arterial 7.526 (7.35-7.45)
[2023-08-03] MEDS: Albumin 25% 25 GM/100 ML BOT IVPB SCH ×3 (07:39→18:01)
[2023-08-03] MEDS: Famotidine/PF 20 mg/2ml Vial SLOW IVP SCH ×2 (08:18→20:37)
[2023-08-03] MEDS: Sodium Chloride 0.9% 1,000 ML IV SCH ×3 (08:19→18:12)
[2023-08-03 10:14] LABS: Platelet Count 204 10x3/uL (130-400)
[2023-08-03 10:31] LABS: Fibrinogen 325 mg/dL (253-463); INR-International Normal Ratio 2.4; PTT 38.1 sec (22.9-36.1); Prothrombin Time 27.6 sec (12.0-14.7)
[2023-08-03 10:34] LABS: D-Dimer Test 0.54 *mcg/mL (0.27-0.43)
[2023-08-03 11:23] LABS: PTT - Undiluted 32.7 sec (22.9-36.1)
[2023-08-03 11:24] LABS: PTT 1:1 Mix 28.6 sec (22.9-36.1)
[2023-08-03 12:43] LABS: PT 1:1 37C-90 min. Incubation 16.6 sec (12.0-14.7); PTT 1:1 37C/90 MIN Incubation 31.7 sec (22.9-36.1)
[2023-08-03 14:48] LABS: #Monocytes 0.8 thou/uL (0.11-0.59); #Neutrophils 8.2 thou/uL (1.40-6.50); %Basophils 0.1 % (0.0-1.0); %Lymphocytes 6.7 % (21.0-51.0); %Monocytes 8.2 % (0.0-10.0); %Neutrophils 84.5 % (42.0-75.0); Mean Corpuscular HGB CONC 33.7 g/dL (32.0-36.0); Mean Corpuscular Hemoglobin 28.8 pg (27.0-31.0); Mean Corpuscular Volume 85.4 fl (78.0-98.0); Mean Platelet Volume 10.1 fL (7.4-10.4); Platelet Count 166 10x3/uL (130-400); RBC Distribution Width 16.2 % (11.5-14.5)
[2023-08-03 15:12] LABS: Hematocrit 20.5 % (36.0-47.0); Hemoglobin 6.9 g/dL (12.0-16.0); INR-International Normal Ratio 2.5; PTT 41.1 sec (22.9-36.1); Prothrombin Time 28.5 sec (12.0-14.7); White Blood Cell (WBC) Count 9.7 10x3/uL (4.8-10.8)
[2023-08-03 15:14] LABS: Anion Gap 14 mmol/L (10-20); BUN (Urea Nitrogen) 34 mg/dL (9.8-20.1); Calc. Creatinine Clearance 32 mL/min (70-130); Calcium 7.9 mg/dL (7.8-10.44); Carbon Dioxide 23 mmol/L (23-31); Chloride 104 mmol/L (98-107); Estimated GFR 41; Glucose 195 mg/dL (83-110); Magnesium 2.2 mg/dL (1.6-2.6); Phosphorus 3.2 mg/dL (2.3-4.7); Potassium 3.3 mmol/L (3.5-5.1); Sodium 138 mmol/L (136-145)
[2023-08-03 15:54] LABS: #Monocytes 0.9 thou/uL (0.11-0.59); #Neutrophils 8.5 thou/uL (1.40-6.50); %Basophils 0.1 % (0.0-1.0); %Lymphocytes 6.7 % (21.0-51.0); %Monocytes 8.5 % (0.0-10.0); %Neutrophils 84.3 % (42.0-75.0); Hematocrit 19.6 % (36.0-47.0); Hemoglobin 6.8 g/dL (12.0-16.0); Mean Corpuscular HGB CONC 34.7 g/dL (32.0-36.0); Mean Corpuscular Hemoglobin 28.8 pg (27.0-31.0); Mean Corpuscular Volume 83.1 fl (78.0-98.0); Platelet Count 168 10x3/uL (130-400); RBC Distribution Width 16.1 % (11.5-14.5); Red Blood Cell (RBC) Count 2.36 mill/uL (4.20-5.40); White Blood Cell (WBC) Count 10.1 10x3/uL (4.8-10.8)
[2023-08-03 16:47] LABS: ALV-art Gradient 130.925 mmHg (0-20); Actual Bicarbonate (HCO3a) 24.1 mEq/L (22-28); Base Excess (BEa) 0.5 mEq/L (-2.0 to +3.0); CO2 Tension 33.5 mmHg (35.0-45.0); Calcium, Ionized (arterial) 1.04 mmol/L (1.12-1.30); Carboxyhemoglobin (COHb) 1.4 gm% (0.0-3.0); Hematocrit-ABG 21 % (36.0-47.0); Hemoglobin (Hb) 7.1 g/dL (12.0-16.0); O2 Tension (PaO2), arterial 112.4 mmHg (> 60.0); Potassium - ABG Lab 3.46 mmol/L (3.70-5.30); pH, Arterial 7.474 (7.35-7.45)
[2023-08-03] MEDS: Potassium Chloride 20 MEQ in Premix 1 BAG IVPB SCH ×2 (16:51→18:01)
[2023-08-03] MEDS: Latanoprost 0.005% Ophth Soln 2.5 ml Bottle EA EYE SCH (20:38)
[2023-08-03 22:01] LABS: #Neutrophils 7.9 thou/uL (1.40-6.50); %Basophils 0.1 % (0.0-1.0); %Lymphocytes 8.5 % (21.0-51.0); %Monocytes 10.4 % (0.0-10.0); %Neutrophils 80.6 % (42.0-75.0); Hematocrit 21.8 % (36.0-47.0); Hemoglobin 7.3 g/dL (12.0-16.0); Mean Corpuscular HGB CONC 33.5 g/dL (32.0-36.0); Mean Corpuscular Hemoglobin 28.7 pg (27.0-31.0); Mean Platelet Volume 10.3 fL (7.4-10.4); Platelet Count 133 10x3/uL (130-400); Red Blood Cell (RBC) Count 2.54 mill/uL (4.20-5.40); White Blood Cell (WBC) Count 9.8 10x3/uL (4.8-10.8)
[2023-08-03 22:14] LABS: Mean Corpuscular Volume 85.8 fl (78.0-98.0)
[2023-08-03 22:23] LABS: Anion Gap 15 mmol/L (10-20); BUN (Urea Nitrogen) 32 mg/dL (9.8-20.1); Calc. Creatinine Clearance 32 mL/min (70-130); Calcium 8.1 mg/dL (7.8-10.44); Carbon Dioxide 23 mmol/L (23-31); Chloride 107 mmol/L (98-107); Estimated GFR 41; Glucose 176 mg/dL (83-110); Potassium 3.9 mmol/L (3.5-5.1); Sodium 141 mmol/L (136-145)
[2023-08-04] MEDS: Albumin 25% 25 GM/100 ML BOT IVPB SCH (00:19)
[2023-08-04] MEDS: Sodium Chloride 0.9% 1,000 ML IV SCH ×3 (02:15→18:18)
[2023-08-04 04:38] LABS: #Neutrophils 7.7 thou/uL (1.40-6.50); %Basophils 0.1 % (0.0-1.0); %Lymphocytes 9.9 % (21.0-51.0); %Monocytes 10.2 % (0.0-10.0); %Neutrophils 79.4 % (42.0-75.0); Hematocrit 25.1 % (36.0-47.0); Hemoglobin 8.4 g/dL (12.0-16.0); Mean Corpuscular HGB CONC 33.5 g/dL (32.0-36.0); Mean Corpuscular Hemoglobin 27.5 pg (27.0-31.0); Mean Platelet Volume 10.5 fL (7.4-10.4); RBC Distribution Width 15.7 % (11.5-14.5); Red Blood Cell (RBC) Count 3.05 mill/uL (4.20-5.40); White Blood Cell (WBC) Count 9.7 10x3/uL (4.8-10.8)
[2023-08-04 05:03] LABS: ALT (SGPT) 8 U/L (8-55); AST (SGOT) 17 U/L (5-34); Albumin 4.1 g/dL (3.4-4.8); Alkaline Phosphatase 35 U/L (40-110); Anion Gap 13 mmol/L (10-20); BUN (Urea Nitrogen) 32 mg/dL (9.8-20.1); Bilirubin, Total 2.2 mg/dL (0.2-1.2); Calc. Creatinine Clearance 33 mL/min (70-130); Calcium 8.1 mg/dL (7.8-10.44); Carbon Dioxide 24 mmol/L (23-31); Chloride 108 mmol/L (98-107); Estimated GFR 44; Glucose 162 mg/dL (83-110); Potassium 3.6 mmol/L (3.5-5.1); Protein, Total 5.1 g/dL (5.8-8.1); Sodium 141 mmol/L (136-145)
[2023-08-04 05:05] LABS: Mean Corpuscular Volume 82.3 fl (78.0-98.0); Platelet Count 114 10x3/uL (130-400)
[2023-08-04] MEDS: Levothyroxine Sodium 75 MCG TAB PO SCH (06:09)
[2023-08-04 07:13] LABS: Actual Bicarbonate (HCO3a) 22.1 mEq/L (22-28); Base Excess (BEa) -1.7 mEq/L (-2.0 to +3.0); Calcium, Ionized (arterial) 1.07 mmol/L (1.12-1.30); Carboxyhemoglobin (COHb) 0.6 gm% (0.0-3.0); Hematocrit-ABG 31 % (36.0-47.0); Hemoglobin (Hb) 10.6 g/dL (12.0-16.0); O2 Tension (PaO2), arterial 97.4 mmHg (> 60.0); Potassium - ABG Lab 3.72 mmol/L (3.70-5.30); Puncture Site ALINE; pH, Arterial 7.431 (7.35-7.45)
[2023-08-04] MEDS ORDERED: Furosemide 20 MG/2 ML VIAL SLOW IVP SCH ×2 (09:30→18:00)
[2023-08-04] MEDS: Montelukast Sodium 10 mg Tablet PO SCH (09:37)
[2023-08-04] MEDS ORDERED: Potassium Chloride 40 MEQ in Premix 1 BAG IVPB SCH (10:45)
[2023-08-04] MEDS: Lorazepam 2 MG/ML VIAL SLOW IVP PRN (18:49)
[2023-08-04] MEDS: Famotidine/PF 20 mg/2ml Vial SLOW IVP SCH (20:09)
[2023-08-04] MEDS: Latanoprost 0.005% Ophth Soln 2.5 ml Bottle EA EYE SCH (20:09)
[2023-08-05] MEDS: Sodium Chloride 0.9% 1,000 ML IV SCH ×3 (02:36→18:37)
[2023-08-05 04:17] LABS: #Eosinphils 0.1 thou/uL (0.0-0.7); #Monocytes 1.1 thou/uL (0.11-0.59); #Neutrophils 9.9 thou/uL (1.40-6.50); %Basophils 0.1 % (0.0-1.0); %Eosinophils 0.4 % (0.0-10.0); %Lymphocytes 10.4 % (21.0-51.0); %Monocytes 8.5 % (0.0-10.0); Hematocrit 26.7 % (36.0-47.0); Hemoglobin 8.8 g/dL (12.0-16.0); Mean Corpuscular Hemoglobin 27.7 pg (27.0-31.0); Mean Platelet Volume 10.5 fL (7.4-10.4); Platelet Count 110 10x3/uL (130-400); RBC Distribution Width 17.1 % (11.5-14.5); Red Blood Cell (RBC) Count 3.18 mill/uL (4.20-5.40); White Blood Cell (WBC) Count 12.4 10x3/uL (4.8-10.8)
[2023-08-05 04:41] LABS: ALT (SGPT) 9 U/L (8-55); AST (SGOT) 19 U/L (5-34); Albumin 3.2 g/dL (3.4-4.8); Alkaline Phosphatase 121 U/L (40-110); Anion Gap 12 mmol/L (10-20); BUN (Urea Nitrogen) 32 mg/dL (9.8-20.1); Bilirubin, Total 1.1 mg/dL (0.2-1.2); Calc. Creatinine Clearance 42 mL/min (70-130); Carbon Dioxide 23 mmol/L (23-31); Chloride 113 mmol/L (98-107); Estimated GFR 47; Globulin 1.5 g/dL (2.4-3.5); Glucose 137 mg/dL (83-110); Potassium 3.7 mmol/L (3.5-5.1); Protein, Total 4.7 g/dL (5.8-8.1); Sodium 144 mmol/L (136-145)
[2023-08-05] MEDS: Levothyroxine Sodium 75 MCG TAB PO SCH (06:27)
[2023-08-05 07:22] LABS: Actual Bicarbonate (HCO3a) 20.6 mEq/L (22-28); Base Excess (BEa) -3.5 mEq/L (-2.0 to +3.0); CO2 Tension 33.7 mmHg (35.0-45.0); Calcium, Ionized (arterial) 1.11 mmol/L (1.12-1.30); Carboxyhemoglobin (COHb) 0.1 gm% (0.0-3.0); Hematocrit-ABG 33 % (36.0-47.0); Hemoglobin (Hb) 11.3 g/dL (12.0-16.0); O2 Tension (PaO2), arterial 110.7 mmHg (> 60.0); Potassium - ABG Lab 3.58 mmol/L (3.70-5.30); pH, Arterial 7.404 (7.35-7.45)
[2023-08-05 07:35] LABS: ALV-art Gradient 132.375 mmHg (0-20); Puncture Site ALINE
[2023-08-05] MEDS ORDERED: Bumetanide 1 MG/4 ML VIAL IVP SCH (08:15)
[2023-08-05] MEDS: Montelukast Sodium 10 mg Tablet PO SCH (09:58)
[2023-08-05] MEDS: Fentanyl CADD 100 ML IV SCH (11:28)
[2023-08-05] MEDS: Lorazepam 2 MG/ML VIAL SLOW IVP PRN (15:41)
[2023-08-05] MEDS: Latanoprost 0.005% Ophth Soln 2.5 ml Bottle EA EYE SCH (21:13)
[2023-08-05] MEDS: Famotidine/PF 20 mg/2ml Vial SLOW IVP SCH (21:14)
[2023-08-06] MEDS: Sodium Chloride 0.9% 1,000 ML IV SCH (01:49)
[2023-08-06 04:34] LABS: #Eosinphils 0.1 thou/uL (0.0-0.7); #Monocytes 1.1 thou/uL (0.11-0.59); #Neutrophils 10.3 thou/uL (1.40-6.50); %Basophils 0.2 % (0.0-1.0); %Eosinophils 0.9 % (0.0-10.0); %Lymphocytes 9.7 % (21.0-51.0); %Monocytes 8.2 % (0.0-10.0); %Neutrophils 80.4 % (42.0-75.0); Hematocrit 28.6 % (36.0-47.0); Mean Corpuscular HGB CONC 31.5 g/dL (32.0-36.0); Mean Corpuscular Hemoglobin 27.4 pg (27.0-31.0); Mean Platelet Volume 10.8 fL (7.4-10.4); Platelet Count 137 10x3/uL (130-400); RBC Distribution Width 17.1 % (11.5-14.5); Red Blood Cell (RBC) Count 3.28 mill/uL (4.20-5.40); White Blood Cell (WBC) Count 12.8 10x3/uL (4.8-10.8)
[2023-08-06 05:15] LABS: ALT (SGPT) 13 U/L (8-55); AST (SGOT) 22 U/L (5-34); Albumin 3.1 g/dL (3.4-4.8); Alkaline Phosphatase 218 U/L (40-110); Anion Gap 13 mmol/L (10-20); BUN (Urea Nitrogen) 31 mg/dL (9.8-20.1); Calc. Creatinine Clearance 51 mL/min (70-130); Calcium 7.8 mg/dL (7.8-10.44); Carbon Dioxide 23 mmol/L (23-31); Chloride 113 mmol/L (98-107); Estimated GFR 57; Globulin 1.6 g/dL (2.4-3.5); Glucose 139 mg/dL (83-110); Potassium 3.8 mmol/L (3.5-5.1); Protein, Total 4.7 g/dL (5.8-8.1); Sodium 145 mmol/L (136-145)
[2023-08-06] MEDS: Levothyroxine Sodium 75 MCG TAB PO SCH (05:41)
[2023-08-06 05:51] LABS: Mean Corpuscular Volume 87.2 fl (78.0-98.0)
[2023-08-06] MEDS ORDERED: Bumetanide 1 MG/4 ML VIAL IVP SCH ×2 (08:00)
[2023-08-06] MEDS: Montelukast Sodium 10 mg Tablet PO SCH (08:44)
[2023-08-06] MEDS: Senokot S 8.6-50 MG TAB PO SCH ×2 (08:44→22:54)
[2023-08-06] MEDS: Lorazepam 2 MG/ML VIAL SLOW IVP PRN ×2 (10:49→14:06)
[2023-08-06] MEDS: Bumetanide 1 MG/4 ML VIAL IVP SCH (14:06)
[2023-08-06] MEDS: Insulin Regular 300 UNITS/3 ML VIAL SC PRN (16:02)
[2023-08-06] MEDS: Famotidine/PF 20 mg/2ml Vial SLOW IVP SCH (22:54)
[2023-08-06] MEDS: Latanoprost 0.005% Ophth Soln 2.5 ml Bottle EA EYE SCH (22:55)
[2023-08-07 04:59] LABS: #Eosinphils 0.2 thou/uL (0.0-0.7); #Monocytes 1.1 thou/uL (0.11-0.59); #Neutrophils 8.8 thou/uL (1.40-6.50); %Basophils 0.1 % (0.0-1.0); %Eosinophils 1.4 % (0.0-10.0); %Lymphocytes 13.2 % (21.0-51.0); %Monocytes 9.4 % (0.0-10.0); %Neutrophils 75.1 % (42.0-75.0); Hematocrit 28.1 % (36.0-47.0); Mean Corpuscular Hemoglobin 27.9 pg (27.0-31.0); Mean Platelet Volume 10.4 fL (7.4-10.4); Platelet Count 164 10x3/uL (130-400); Red Blood Cell (RBC) Count 3.23 mill/uL (4.20-5.40); White Blood Cell (WBC) Count 11.7 10x3/uL (4.8-10.8)
[2023-08-07 05:20] LABS: ALT (SGPT) 12 U/L (8-55); AST (SGOT) 19 U/L (5-34); Albumin 2.9 g/dL (3.4-4.8); Alkaline Phosphatase 181 U/L (40-110); Anion Gap 12 mmol/L (10-20); BUN (Urea Nitrogen) 32 mg/dL (9.8-20.1); Bilirubin, Total 1.3 mg/dL (0.2-1.2); Calc. Creatinine Clearance 60 mL/min (70-130); Calcium 7.9 mg/dL (7.8-10.44); Carbon Dioxide 27 mmol/L (23-31); Chloride 110 mmol/L (98-107); Estimated GFR 66; Globulin 1.6 g/dL (2.4-3.5); Glucose 136 mg/dL (83-110); Potassium 3.1 mmol/L (3.5-5.1); Protein, Total 4.5 g/dL (5.8-8.1); Sodium 146 mmol/L (136-145)
[2023-08-07] MEDS: Bumetanide 1 MG/4 ML VIAL IVP SCH ×2 (07:16→15:18)
[2023-08-07] MEDS ORDERED: Potassium Chloride 40 MEQ in Premix 1 BAG IVPB SCH (08:00)
[2023-08-07 08:08] LABS: Actual Bicarbonate (HCO3a) 28.1 mEq/L (22-28); Base Excess (BEa) 3.9 mEq/L (-2.0 to +3.0); CO2 Tension 40.7 mmHg (35.0-45.0); Calcium, Ionized (arterial) 1.13 mmol/L (1.12-1.30); Carboxyhemoglobin (COHb) 0.8 gm% (0.0-3.0); Hematocrit-ABG 30 % (36.0-47.0); Hemoglobin (Hb) 10.3 g/dL (12.0-16.0); O2 Tension (PaO2), arterial 103.4 mmHg (> 60.0); Potassium - ABG Lab 3.12 mmol/L (3.70-5.30); pH, Arterial 7.457 (7.35-7.45)
[2023-08-07 08:09] LABS: Puncture Site RRA
[2023-08-07 08:10] LABS: ALV-art Gradient 130.925 mmHg (0-20)
[2023-08-07] MEDS: Levothyroxine Sodium 75 MCG TAB PO SCH (08:23)
[2023-08-07] MEDS: Montelukast Sodium 10 mg Tablet PO SCH (08:23)
[2023-08-07] MEDS: Senokot S 8.6-50 MG TAB PO SCH ×2 (08:23→21:18)
[2023-08-07] MEDS ORDERED: Sodium Chloride 0.9% 500 ML IV SCH (10:15)
[2023-08-07] MEDS ORDERED: Albumin 25% 25 GM/100 ML BOT IVPB SCH (10:15)
[2023-08-07] MEDS: Fentanyl CADD 100 ML IV SCH (17:30)
[2023-08-07] MEDS: Famotidine/PF 20 mg/2ml Vial SLOW IVP SCH (21:18)
[2023-08-07] MEDS: Latanoprost 0.005% Ophth Soln 2.5 ml Bottle EA EYE SCH (21:19)
[2023-08-08 04:20] LABS: #Eosinphils 0.1 thou/uL (0.0-0.7); #Monocytes 1.3 thou/uL (0.11-0.59); #Neutrophils 9.5 thou/uL (1.40-6.50); %Basophils 0.1 % (0.0-1.0); %Eosinophils 1.1 % (0.0-10.0); %Lymphocytes 12.7 % (21.0-51.0); %Neutrophils 75.2 % (42.0-75.0); Hematocrit 31.2 % (36.0-47.0); Hemoglobin 9.6 g/dL (12.0-16.0); Mean Corpuscular HGB CONC 30.8 g/dL (32.0-36.0); Mean Corpuscular Hemoglobin 28.1 pg (27.0-31.0); Mean Platelet Volume 10.5 fL (7.4-10.4); Platelet Count 210 10x3/uL (130-400); RBC Distribution Width 17.3 % (11.5-14.5); Red Blood Cell (RBC) Count 3.42 mill/uL (4.20-5.40); White Blood Cell (WBC) Count 12.6 10x3/uL (4.8-10.8)
[2023-08-08 04:48] LABS: ALT (SGPT) 14 U/L (8-55); AST (SGOT) 22 U/L (5-34); Albumin 3.6 g/dL (3.4-4.8); Alkaline Phosphatase 181 U/L (40-110); Anion Gap 13 mmol/L (10-20); BUN (Urea Nitrogen) 32 mg/dL (9.8-20.1); Bilirubin, Total 1.3 mg/dL (0.2-1.2); Calc. Creatinine Clearance 56 mL/min (70-130); Calcium 8.4 mg/dL (7.8-10.44); Carbon Dioxide 31 mmol/L (23-31); Chloride 108 mmol/L (98-107); Estimated GFR 64; Globulin 1.9 g/dL (2.4-3.5); Glucose 131 mg/dL (83-110); Potassium 3.6 mmol/L (3.5-5.1); Protein, Total 5.5 g/dL (5.8-8.1); Sodium 148 mmol/L (136-145)
[2023-08-08] MEDS: Levothyroxine Sodium 75 MCG TAB PO SCH (05:00)
[2023-08-08] MEDS: Bumetanide 1 MG/4 ML VIAL IVP SCH ×2 (05:00→15:09)
[2023-08-08 05:16] LABS: Mean Corpuscular Volume 91.2 fl (78.0-98.0)
[2023-08-08 07:11] LABS: Actual Bicarbonate (HCO3a) 29.8 mEq/L (22-28); Base Excess (BEa) 4.2 mEq/L (-2.0 to +3.0); CO2 Tension 49.9 mmHg (35.0-45.0); Calcium, Ionized (arterial) 1.12 mmol/L (1.12-1.30); Carboxyhemoglobin (COHb) 0.7 gm% (0.0-3.0); Hematocrit-ABG 31 % (36.0-47.0); Hemoglobin (Hb) 10.5 g/dL (12.0-16.0); O2 Tension (PaO2), arterial 114.4 mmHg (> 60.0); Potassium - ABG Lab 3.32 mmol/L (3.70-5.30); pH, Arterial 7.394 (7.35-7.45)
[2023-08-08 07:14] LABS: Puncture Site RRA
[2023-08-08 07:15] LABS: ALV-art Gradient 108.425 mmHg (0-20)
[2023-08-08] MEDS: Senokot S 8.6-50 MG TAB PO SCH ×2 (08:03→20:14)
[2023-08-08] MEDS: Montelukast Sodium 10 mg Tablet PO SCH (08:03)
[2023-08-08 09:41] LABS: Actual Bicarbonate (HCO3a) 26.1 mEq/L (22-28); Analyzer IN Cardio OR; Base Excess (BEa) 2.8 mEq/L (-2.0 to +3.0); CO2 Tension 34.2 mmHg (35.0-45.0); Calcium, Ionized (arterial) 0.86 mmol/L (1.12-1.30); Carboxyhemoglobin (COHb) 1.1 gm% (0.0-3.0); Hematocrit-ABG 20 % (36.0-47.0); Hemoglobin (Hb) 6.9 g/dL (12.0-16.0); O2 Tension (PaO2), arterial 341.9 mmHg (> 60.0); pH, Arterial 7.501 (7.35-7.45)
[2023-08-08 09:42] LABS: Puncture Site Arterial Line
[2023-08-08 10:17] LABS: Analyzer IN Cardio OR; Base Excess (BEa) 1.7 mEq/L (-2.0 to +3.0); CO2 Tension 28.1 mmHg (35.0-45.0); Calcium, Ionized (arterial) 1.01 mmol/L (1.12-1.30); Carboxyhemoglobin (COHb) 1.3 gm% (0.0-3.0); Hematocrit-ABG 20 % (36.0-47.0); Hemoglobin (Hb) 6.7 g/dL (12.0-16.0); O2 Tension (PaO2), arterial 514.6 mmHg (> 60.0); Potassium - ABG Lab 3.64 mmol/L (3.70-5.30)
[2023-08-08 10:18] LABS: Actual Bicarbonate (HCO3a) 29.5 mEq/L (22-28); Analyzer IN Cardio OR; Base Excess (BEa) 5.7 mEq/L (-2.0 to +3.0); CO2 Tension 39.8 mmHg (35.0-45.0); Calcium, Ionized (arterial) 1.04 mmol/L (1.12-1.30); Carboxyhemoglobin (COHb) 0.3 gm% (0.0-3.0); Hematocrit-ABG 29 % (36.0-47.0); Hemoglobin (Hb) 9.8 g/dL (12.0-16.0); O2 Tension (PaO2), arterial 440.1 mmHg (> 60.0); Potassium - ABG Lab 3.64 mmol/L (3.70-5.30); Puncture Site Arterial Line; pH, Arterial 7.488 (7.35-7.45)
[2023-08-08 10:18] LABS: Puncture Site Arterial Line
[2023-08-08] MEDS: Lorazepam 2 MG/ML VIAL SLOW IVP PRN (15:41)
[2023-08-08] MEDS: Fentanyl CADD 100 ML IV SCH (15:52)
[2023-08-08] MEDS: Famotidine/PF 20 mg/2ml Vial SLOW IVP SCH (20:09)
[2023-08-08] MEDS: Latanoprost 0.005% Ophth Soln 2.5 ml Bottle EA EYE SCH (20:14)
[2023-08-09 03:47] LABS: #Eosinphils 0.1 thou/uL (0.0-0.7); #Neutrophils 8.9 thou/uL (1.40-6.50); %Basophils 0.1 % (0.0-1.0); %Eosinophils 0.9 % (0.0-10.0); %Lymphocytes 11.5 % (21.0-51.0); %Monocytes 8.8 % (0.0-10.0); %Neutrophils 77.6 % (42.0-75.0); Hemoglobin 8.6 g/dL (12.0-16.0); Mean Corpuscular HGB CONC 30.7 g/dL (32.0-36.0); Mean Corpuscular Hemoglobin 27.7 pg (27.0-31.0); Mean Platelet Volume 10.8 fL (7.4-10.4); Platelet Count 215 10x3/uL (130-400); RBC Distribution Width 17.1 % (11.5-14.5); Red Blood Cell (RBC) Count 3.11 mill/uL (4.20-5.40); White Blood Cell (WBC) Count 11.4 10x3/uL (4.8-10.8)
[2023-08-09 04:15] LABS: ALT (SGPT) 12 U/L (8-55); AST (SGOT) 21 U/L (5-34); Alkaline Phosphatase 144 U/L (40-110); Anion Gap 14 mmol/L (10-20); BUN (Urea Nitrogen) 35 mg/dL (9.8-20.1); Bilirubin, Total 1.3 mg/dL (0.2-1.2); Calc. Creatinine Clearance 57 mL/min (70-130); Carbon Dioxide 33 mmol/L (23-31); Chloride 107 mmol/L (98-107); Estimated GFR 66; Glucose 141 mg/dL (83-110); Potassium 2.9 mmol/L (3.5-5.1)
[2023-08-09 04:23] LABS: Sodium 151 mmol/L (136-145)
[2023-08-09] MEDS ORDERED: Activase 2 MG VIAL CATH SCH (04:30)
[2023-08-09] MEDS ORDERED: Sterile Water 10 ML VIAL FS SCH (04:30)
[2023-08-09] MEDS: Potassium Chloride 40 MEQ in Premix 1 BAG IVPB SCH ×2 (05:27→08:34)
[2023-08-09] MEDS: Levothyroxine Sodium 75 MCG TAB PO SCH (05:29)
[2023-08-09] MEDS: Bumetanide 1 MG/4 ML VIAL IVP SCH ×2 (05:29→14:03)
[2023-08-09] MEDS: Senokot S 8.6-50 MG TAB PO SCH ×2 (08:34→22:23)
[2023-08-09] MEDS: Montelukast Sodium 10 mg Tablet PO SCH (08:34)
[2023-08-09] MEDS: Insulin Regular 300 UNITS/3 ML VIAL SC PRN (10:00)
[2023-08-09] MEDS ORDERED: Dexmedetomidine 400 MCG, Admixture Fee 1 EACH in Sodium Chloride 0.9% 96 ML IVPB SCH (10:15)
[2023-08-09] MEDS: Famotidine/PF 20 mg/2ml Vial SLOW IVP SCH (20:41)
[2023-08-09] MEDS: Latanoprost 0.005% Ophth Soln 2.5 ml Bottle EA EYE SCH (20:47)
[2023-08-09 23:37] LABS: Potassium 3.5 mmol/L (3.5-5.1)
[2023-08-10] MEDS: Potassium Chloride 20 MEQ in Premix 1 BAG IVPB SCH ×2 (01:31→03:22)
[2023-08-10 04:39] LABS: #Monocytes 0.8 thou/uL (0.11-0.59); %Basophils 0.1 % (0.0-1.0); %Eosinophils 0.3 % (0.0-10.0); %Lymphocytes 10.6 % (21.0-51.0); %Monocytes 7.3 % (0.0-10.0); %Neutrophils 80.5 % (42.0-75.0); Hematocrit 32.3 % (36.0-47.0); Hemoglobin 9.5 g/dL (12.0-16.0); Mean Corpuscular HGB CONC 29.4 g/dL (32.0-36.0); Mean Corpuscular Hemoglobin 27.6 pg (27.0-31.0); Mean Corpuscular Volume 93.9 fl (78.0-98.0); Mean Platelet Volume 10.8 fL (7.4-10.4); Platelet Count 237 10x3/uL (130-400); RBC Distribution Width 17.9 % (11.5-14.5); Red Blood Cell (RBC) Count 3.44 mill/uL (4.20-5.40); White Blood Cell (WBC) Count 11.2 10x3/uL (4.8-10.8)
[2023-08-10 05:05] LABS: ALT (SGPT) 14 U/L (8-55); AST (SGOT) 21 U/L (5-34); Albumin 3.5 g/dL (3.4-4.8); Alkaline Phosphatase 153 U/L (40-110); Anion Gap 13 mmol/L (10-20); BUN (Urea Nitrogen) 38 mg/dL (9.8-20.1); Bilirubin, Total 1.5 mg/dL (0.2-1.2); Calc. Creatinine Clearance 49 mL/min (70-130); Calcium 8.5 mg/dL (7.8-10.44); Carbon Dioxide 36 mmol/L (23-31); Chloride 105 mmol/L (98-107); Estimated GFR 56; Glucose 104 mg/dL (83-110); Potassium 3.6 mmol/L (3.5-5.1); Protein, Total 5.5 g/dL (5.8-8.1); Sodium 150 mmol/L (136-145)
[2023-08-10] MEDS: Bumetanide 1 MG/4 ML VIAL IVP SCH ×2 (05:18→14:22)
[2023-08-10] MEDS: Levothyroxine Sodium 75 MCG TAB PO SCH (05:19)
[2023-08-10] MEDS: Montelukast Sodium 10 mg Tablet PO SCH (10:01)
[2023-08-10] MEDS: Senokot S 8.6-50 MG TAB PO SCH ×2 (10:02→20:02)
[2023-08-10 11:38] LABS: WBC/Nucleated-Auto (BF) 1300 /cu.mm
[2023-08-10 11:50] LABS: Body Fluid Source Thoracentesis Fluid; Clarity Cloudy/Turbid (Clear); Tube # EDTA
[2023-08-10 11:51] LABS: BF Color Red
[2023-08-10 11:52] LABS: BF Segmented Neutrophils 6 %; Cell Count Non Hematic 85 %; Lymphocytes 9 %
[2023-08-10] MEDS: Latanoprost 0.005% Ophth Soln 2.5 ml Bottle EA EYE SCH (20:02)
[2023-08-10] MEDS: Famotidine/PF 20 mg/2ml Vial SLOW IVP SCH (20:02)
[2023-08-11 04:15] LABS: #Monocytes 0.7 thou/uL (0.11-0.59); #Neutrophils 11.1 thou/uL (1.40-6.50); %Basophils 0.2 % (0.0-1.0); %Eosinophils 0.2 % (0.0-10.0); %Lymphocytes 7.8 % (21.0-51.0); %Monocytes 5.7 % (0.0-10.0); %Neutrophils 85.3 % (42.0-75.0); Hemoglobin 10.4 g/dL (12.0-16.0); Mean Corpuscular HGB CONC 29.7 g/dL (32.0-36.0); Mean Corpuscular Volume 94.3 fl (78.0-98.0); Mean Platelet Volume 10.6 fL (7.4-10.4); Platelet Count 291 10x3/uL (130-400); RBC Distribution Width 18.2 % (11.5-14.5); Red Blood Cell (RBC) Count 3.71 mill/uL (4.20-5.40)
[2023-08-11 04:41] LABS: ALT (SGPT) 15 U/L (8-55); AST (SGOT) 22 U/L (5-34); Albumin 3.3 g/dL (3.4-4.8); Alkaline Phosphatase 142 U/L (40-110); Anion Gap 19 mmol/L (10-20); BUN (Urea Nitrogen) 37 mg/dL (9.8-20.1); Bilirubin, Total 1.5 mg/dL (0.2-1.2); Calc. Creatinine Clearance 84 mL/min (70-130); Calcium 8.4 mg/dL (7.8-10.44); Carbon Dioxide 32 mmol/L (23-31); Chloride 104 mmol/L (98-107); Estimated GFR 56; Globulin 2.2 g/dL (2.4-3.5); Glucose 97 mg/dL (83-110); Potassium 3.6 mmol/L (3.5-5.1); Protein, Total 5.5 g/dL (5.8-8.1)
[2023-08-11 04:47] LABS: Sodium 151 mmol/L (136-145)
[2023-08-11] MEDS: Bumetanide 1 MG/4 ML VIAL IVP SCH ×2 (05:40→15:36)
[2023-08-11] MEDS: Levothyroxine Sodium 75 MCG TAB PO SCH (05:40)
[2023-08-11] MEDS: Senokot S 8.6-50 MG TAB PO SCH ×2 (08:44→21:43)
[2023-08-11] MEDS: Montelukast Sodium 10 mg Tablet PO SCH (08:44)
[2023-08-11] MEDS: Dextrose 5% in Water 1,000 ML IV SCH ×2 (10:27→23:38)
[2023-08-11 14:18] LABS: Anion Gap 17 mmol/L (10-20); BUN (Urea Nitrogen) 38 mg/dL (9.8-20.1); Calc. Creatinine Clearance 46 mL/min (70-130); Calcium 8.5 mg/dL (7.8-10.44); Carbon Dioxide 31 mmol/L (23-31); Chloride 102 mmol/L (98-107); Estimated GFR 54; Glucose 136 mg/dL (83-110); Magnesium 1.8 mg/dL (1.6-2.6); Phosphorus 3.9 mg/dL (2.3-4.7); Potassium 3.3 mmol/L (3.5-5.1); Sodium 147 mmol/L (136-145)
[2023-08-11] MEDS ORDERED: Potassium Chloride 20 MEQ TAB PO SCH (15:00)
[2023-08-11] MEDS: Famotidine/PF 20 mg/2ml Vial SLOW IVP SCH (20:52)
[2023-08-11] MEDS: Latanoprost 0.005% Ophth Soln 2.5 ml Bottle EA EYE SCH (20:52)
[2023-08-12] MEDS ORDERED: Magnesium 2 GM/50 ML(in water) 2 GM in Premix 1 BAG IVPB SCH (02:15)
[2023-08-12] MEDS: Insulin Regular 300 UNITS/3 ML VIAL SC PRN ×2 (04:01→16:33)
[2023-08-12 04:36] LABS: #Eosinphils 0.1 thou/uL (0.0-0.7); #Monocytes 0.8 thou/uL (0.11-0.59); %Basophils 0.2 % (0.0-1.0); %Eosinophils 0.5 % (0.0-10.0); %Monocytes 7.1 % (0.0-10.0); %Neutrophils 83.6 % (42.0-75.0); Hematocrit 31.5 % (36.0-47.0); Hemoglobin 9.4 g/dL (12.0-16.0); Mean Corpuscular HGB CONC 29.8 g/dL (32.0-36.0); Mean Corpuscular Hemoglobin 27.5 pg (27.0-31.0); Mean Corpuscular Volume 92.1 fl (78.0-98.0); Mean Platelet Volume 10.5 fL (7.4-10.4); Platelet Count 300 10x3/uL (130-400); Red Blood Cell (RBC) Count 3.42 mill/uL (4.20-5.40); White Blood Cell (WBC) Count 10.7 10x3/uL (4.8-10.8)
[2023-08-12 05:04] LABS: ALT (SGPT) 12 U/L (8-55); AST (SGOT) 18 U/L (5-34); Alkaline Phosphatase 116 U/L (40-110); Anion Gap 13 mmol/L (10-20); BUN (Urea Nitrogen) 33 mg/dL (9.8-20.1); Bilirubin, Total 1.4 mg/dL (0.2-1.2); Calc. Creatinine Clearance 49 mL/min (70-130); Carbon Dioxide 33 mmol/L (23-31); Chloride 101 mmol/L (98-107); Estimated GFR 58; Globulin 1.9 g/dL (2.4-3.5); Glucose 150 mg/dL (83-110); Potassium 3.4 mmol/L (3.5-5.1); Protein, Total 4.9 g/dL (5.8-8.1); Sodium 144 mmol/L (136-145)
[2023-08-12] MEDS: Bumetanide 1 MG/4 ML VIAL IVP SCH ×2 (06:09→15:46)
[2023-08-12] MEDS: Levothyroxine Sodium 75 MCG TAB PO SCH (06:09)
[2023-08-12] MEDS: Potassium Chloride 20 MEQ in Premix 1 BAG IVPB SCH ×2 (08:11→09:59)
[2023-08-12] MEDS: Montelukast Sodium 10 mg Tablet PO SCH (09:59)
[2023-08-12] MEDS: Senokot S 8.6-50 MG TAB PO SCH ×2 (09:59→21:57)
[2023-08-12 12:08] LABS: RBC Count-Automated (BF) 172102 /cu.mm; WBC/Nucleated-Auto (BF) 504 /cu.mm
[2023-08-12 12:13] LABS: BF Color Red; Body Fluid Source Thoracentesis Fluid; Clarity Cloudy/Turbid (Clear); Tube # EDTA
[2023-08-12 12:23] LABS: Fluid, Triglycerides 35 mg/dL (Not Available); Pleural Fluid, Amylase Less than 30 U/L (Not Available); Pleural Fluid, Glucose 133 mg/dL; Pleural Fluid, LDH 191 U/L (Not Available)
[2023-08-12 13:01] LABS: BF Segmented Neutrophils 49 %; Cell Count Non Hematic 19 %; Lymphocytes 32 %
[2023-08-12] MEDS: Dextrose 5% in Water 1,000 ML IV SCH (15:49)
[2023-08-12] MEDS: Famotidine/PF 20 mg/2ml Vial SLOW IVP SCH (21:57)
[2023-08-12] MEDS: Latanoprost 0.005% Ophth Soln 2.5 ml Bottle EA EYE SCH (21:57)
[2023-08-13 04:21] LABS: #Eosinphils 0.1 thou/uL (0.0-0.7); #Monocytes 0.7 thou/uL (0.11-0.59); #Neutrophils 10.6 thou/uL (1.40-6.50); %Basophils 0.2 % (0.0-1.0); %Eosinophils 0.8 % (0.0-10.0); %Lymphocytes 7.8 % (21.0-51.0); %Monocytes 5.3 % (0.0-10.0); %Neutrophils 85.4 % (42.0-75.0); Hemoglobin 9.6 g/dL (12.0-16.0); Mean Corpuscular Hemoglobin 27.7 pg (27.0-31.0); Mean Corpuscular Volume 92.2 fl (78.0-98.0); Mean Platelet Volume 10.1 fL (7.4-10.4); Platelet Count 306 10x3/uL (130-400); RBC Distribution Width 17.9 % (11.5-14.5); Red Blood Cell (RBC) Count 3.47 mill/uL (4.20-5.40); White Blood Cell (WBC) Count 12.4 10x3/uL (4.8-10.8)
[2023-08-13 04:45] LABS: ALT (SGPT) 8 U/L (8-55); AST (SGOT) 17 U/L (5-34); Albumin 2.8 g/dL (3.4-4.8); Alkaline Phosphatase 104 U/L (40-110); Anion Gap 13 mmol/L (10-20); BUN (Urea Nitrogen) 25 mg/dL (9.8-20.1); Bilirubin, Total 1.1 mg/dL (0.2-1.2); Calc. Creatinine Clearance 54 mL/min (70-130); Calcium 7.9 mg/dL (7.8-10.44); Carbon Dioxide 31 mmol/L (23-31); Chloride 100 mmol/L (98-107); Estimated GFR 64; Globulin 1.8 g/dL (2.4-3.5); Glucose 127 mg/dL (83-110); Potassium 3.6 mmol/L (3.5-5.1); Protein, Total 4.6 g/dL (5.8-8.1); Sodium 140 mmol/L (136-145)
[2023-08-13] MEDS: Bumetanide 1 MG/4 ML VIAL IVP SCH (06:14)
[2023-08-13] MEDS: Levothyroxine Sodium 75 MCG TAB PO SCH (06:15)
[2023-08-13] MEDS: Dextrose 5% in Water 1,000 ML IV SCH (06:15)
[2023-08-13] MEDS: Montelukast Sodium 10 mg Tablet PO SCH (10:02)
[2023-08-13] MEDS: Senokot S 8.6-50 MG TAB PO SCH ×2 (10:02→21:30)
[2023-08-13] MEDS ORDERED: traZODone HCl 50 MG TAB PO PRN (15:36)
[2023-08-13] MEDS: Famotidine/PF 20 mg/2ml Vial SLOW IVP SCH (21:40)
[2023-08-13] MEDS: Latanoprost 0.005% Ophth Soln 2.5 ml Bottle EA EYE SCH (21:40)
[2023-08-14 04:12] LABS: Hematocrit 32.9 % (36.0-47.0); Hemoglobin 9.9 g/dL (12.0-16.0); Mean Corpuscular HGB CONC 30.1 g/dL (32.0-36.0); Mean Corpuscular Hemoglobin 27.8 pg (27.0-31.0); Mean Corpuscular Volume 92.4 fl (78.0-98.0); Mean Platelet Volume 10.5 fL (7.4-10.4); Platelet Count 314 10x3/uL (130-400); RBC Distribution Width 17.8 % (11.5-14.5); Red Blood Cell (RBC) Count 3.56 mill/uL (4.20-5.40); White Blood Cell (WBC) Count 14.2 10x3/uL (4.8-10.8)
[2023-08-14 04:33] LABS: Anion Gap 13 mmol/L (10-20); BUN (Urea Nitrogen) 26 mg/dL (9.8-20.1); Calc. Creatinine Clearance 56 mL/min (70-130); Carbon Dioxide 32 mmol/L (23-31); Chloride 100 mmol/L (98-107); Estimated GFR 67; Glucose 94 mg/dL (83-110); Potassium 3.8 mmol/L (3.5-5.1); Sodium 141 mmol/L (136-145)
[2023-08-14] MEDS: Levothyroxine Sodium 75 MCG TAB PO SCH (05:45)
[2023-08-14] MEDS ORDERED: Furosemide 40 MG TAB PO SCH (09:00)
[2023-08-14] MEDS: Montelukast Sodium 10 mg Tablet PO SCH (09:51)
[2023-08-14] MEDS: Senokot S 8.6-50 MG TAB PO SCH ×2 (09:51→21:05)
[2023-08-14] MEDS: Aspirin Chewable 81 MG TAB PO SCH (09:51)
[2023-08-14] MEDS ORDERED: Furosemide 40 MG/4 ML VIAL SLOW IVP SCH (12:00)
[2023-08-14] MEDS ORDERED: LevoFLOXacin 750 mg/D5W 750 MG in Premix 1 BAG IVPB SCH (12:00)
[2023-08-14] MEDS: Vancomycin 1 GM in Premix 1 BAG IVPB SCH (12:41)
[2023-08-14] MEDS ORDERED: Furosemide 20 MG/2 ML VIAL SLOW IVP SCH (16:45)
[2023-08-14] MEDS: Melatonin 3 MG TAB PO SCH (20:44)
[2023-08-14] MEDS: Famotidine/PF 20 mg/2ml Vial SLOW IVP SCH (20:45)
[2023-08-14] MEDS: Latanoprost 0.005% Ophth Soln 2.5 ml Bottle EA EYE SCH (20:53)
[2023-08-14] MEDS: Furosemide 40 MG/4 ML VIAL SLOW IVP SCH (21:40)
[2023-08-15] MEDS: Levothyroxine Sodium 75 MCG TAB PO SCH (05:12)
[2023-08-15 05:43] LABS: INR-International Normal Ratio 1.1; PTT 23.9 sec (22.9-36.1); Prothrombin Time 14.6 sec (12.0-14.7)
[2023-08-15 05:47] LABS: #Eosinphils 0.2 thou/uL (0.0-0.7); #Monocytes 0.7 thou/uL (0.11-0.59); #Neutrophils 10.9 thou/uL (1.40-6.50); %Basophils 0.3 % (0.0-1.0); %Eosinophils 1.4 % (0.0-10.0); %Lymphocytes 5.3 % (21.0-51.0); %Monocytes 5.7 % (0.0-10.0); %Neutrophils 86.7 % (42.0-75.0); Hematocrit 33.3 % (36.0-47.0); Hemoglobin 9.9 g/dL (12.0-16.0); Mean Corpuscular HGB CONC 29.7 g/dL (32.0-36.0); Mean Corpuscular Hemoglobin 27.6 pg (27.0-31.0); Mean Corpuscular Volume 92.8 fl (78.0-98.0); Mean Platelet Volume 9.8 fL (7.4-10.4); Platelet Count 303 10x3/uL (130-400); RBC Distribution Width 17.5 % (11.5-14.5); Red Blood Cell (RBC) Count 3.59 mill/uL (4.20-5.40); White Blood Cell (WBC) Count 12.6 10x3/uL (4.8-10.8)
[2023-08-15 05:48] LABS: Anion Gap 12 mmol/L (10-20); BUN (Urea Nitrogen) 23 mg/dL (9.8-20.1); Calc. Creatinine Clearance 56 mL/min (70-130); Calcium 7.9 mg/dL (7.8-10.44); Carbon Dioxide 36 mmol/L (23-31); Chloride 97 mmol/L (98-107); Estimated GFR 70; Glucose 137 mg/dL (83-110); Potassium 3.6 mmol/L (3.5-5.1); Sodium 141 mmol/L (136-145)
[2023-08-15] MEDS ORDERED: Senokot S 8.6-50 MG TAB PO PRN (07:13)
[2023-08-15] MEDS: Aspirin Chewable 81 MG TAB PO SCH (09:42)
[2023-08-15] MEDS: Montelukast Sodium 10 mg Tablet PO SCH (09:43)
[2023-08-15] MEDS: Furosemide 40 MG/4 ML VIAL SLOW IVP SCH ×2 (09:43→20:42)
[2023-08-15] MEDS: Vancomycin 1 GM in Premix 1 BAG IVPB SCH (15:42)
[2023-08-15] MEDS: Morphine 2 MG/ML VIAL SLOW IVP PRN (20:25)
[2023-08-15] MEDS: Melatonin 3 MG TAB PO SCH (20:42)
[2023-08-15] MEDS: Famotidine/PF 20 mg/2ml Vial SLOW IVP SCH (20:42)
[2023-08-16] MEDS: Ketorolac Tromethamine 30 MG/ML VIAL IVP PRN (01:17)
[2023-08-16] MEDS: Latanoprost 0.005% Ophth Soln 2.5 ml Bottle EA EYE SCH ×2 (01:18→20:17)
[2023-08-16 04:12] LABS: Anion Gap 12 mmol/L (10-20); BUN (Urea Nitrogen) 24 mg/dL (9.8-20.1); Calc. Creatinine Clearance 57 mL/min (70-130); Calcium 7.7 mg/dL (7.8-10.44); Carbon Dioxide 37 mmol/L (23-31); Chloride 95 mmol/L (98-107); Estimated GFR 71; Glucose 103 mg/dL (83-110); Potassium 3.6 mmol/L (3.5-5.1); Sodium 140 mmol/L (136-145)
[2023-08-16 05:48] LABS: #Basophils 0.1 thou/uL (0.0-0.2); #Eosinphils 0.2 thou/uL (0.0-0.7); #Neutrophils 8.4 thou/uL (1.40-6.50); %Basophils 0.5 % (0.0-1.0); %Eosinophils 2.3 % (0.0-10.0); %Lymphocytes 8.6 % (21.0-51.0); %Monocytes 8.9 % (0.0-10.0); %Neutrophils 79.1 % (42.0-75.0); Hematocrit 40.2 % (36.0-47.0); Hemoglobin 11.9 g/dL (12.0-16.0); Mean Corpuscular HGB CONC 29.6 g/dL (32.0-36.0); Mean Corpuscular Hemoglobin 27.9 pg (27.0-31.0); Mean Corpuscular Volume 94.1 fl (78.0-98.0); Mean Platelet Volume 10.5 fL (7.4-10.4); Platelet Count 291 10x3/uL (130-400); RBC Distribution Width 17.2 % (11.5-14.5); Red Blood Cell (RBC) Count 4.27 mill/uL (4.20-5.40); White Blood Cell (WBC) Count 10.6 10x3/uL (4.8-10.8)
[2023-08-16] MEDS: Levothyroxine Sodium 75 MCG TAB PO SCH (06:28)
[2023-08-16] MEDS: Montelukast Sodium 10 mg Tablet PO SCH (09:50)
[2023-08-16] MEDS: Aspirin Chewable 81 MG TAB PO SCH (09:50)
[2023-08-16] MEDS: Furosemide 40 MG/4 ML VIAL SLOW IVP SCH (09:53)
[2023-08-16] MEDS ORDERED: LevoFLOXacin 750 mg/D5W 750 MG in Premix 1 BAG IVPB SCH (12:00)
[2023-08-16] MEDS ORDERED: Vancomycin (BATCH) 1.5 GM in Premix 1 BAG IVPB SCH (15:00)
[2023-08-16] MEDS: Acetaminophen 500 MG TAB PO SCH ×2 (16:26→20:16)
[2023-08-16] MEDS: Melatonin 3 MG TAB PO SCH (20:16)
[2023-08-16] MEDS: Famotidine 20 MG TAB PO SCH (20:16)
[2023-08-17 05:21] LABS: #Basophils 0.1 thou/uL (0.0-0.2); #Eosinphils 0.2 thou/uL (0.0-0.7); #Monocytes 0.7 thou/uL (0.11-0.59); #Neutrophils 6.7 thou/uL (1.40-6.50); %Basophils 0.7 % (0.0-1.0); %Lymphocytes 9.1 % (21.0-51.0); %Monocytes 8.7 % (0.0-10.0); %Neutrophils 78.8 % (42.0-75.0); Hematocrit 31.9 % (36.0-47.0); Hemoglobin 9.5 g/dL (12.0-16.0); Mean Corpuscular HGB CONC 29.8 g/dL (32.0-36.0); Mean Corpuscular Hemoglobin 27.9 pg (27.0-31.0); Mean Corpuscular Volume 93.5 fl (78.0-98.0); Mean Platelet Volume 10.7 fL (7.4-10.4); Platelet Count 233 10x3/uL (130-400); Red Blood Cell (RBC) Count 3.41 mill/uL (4.20-5.40); White Blood Cell (WBC) Count 8.5 10x3/uL (4.8-10.8)
[2023-08-17] MEDS: Levothyroxine Sodium 75 MCG TAB PO SCH (05:28)
[2023-08-17 05:41] LABS: BUN (Urea Nitrogen) 26 mg/dL (9.8-20.1); Calc. Creatinine Clearance 49 mL/min (70-130); Calcium 8.2 mg/dL (7.8-10.44); Estimated GFR 61; Glucose 99 mg/dL (83-110)
[2023-08-17 05:51] LABS: Anion Gap 13 mmol/L (10-20); Carbon Dioxide 36 mmol/L (23-31); Chloride 90 mmol/L (98-107); Potassium 3.6 mmol/L (3.5-5.1); Sodium 135 mmol/L (136-145)
[2023-08-17] MEDS ORDERED: Furosemide 40 MG/4 ML VIAL SLOW IVP SCH ×2 (09:00→15:00)
[2023-08-17] MEDS: Acetaminophen 500 MG TAB PO SCH ×3 (09:48→20:45)
[2023-08-17] MEDS: Montelukast Sodium 10 mg Tablet PO SCH (09:49)
[2023-08-17] MEDS: Aspirin Chewable 81 MG TAB PO SCH (09:49)
[2023-08-17] MEDS: Heparin 5,000 UNITS/ML VIAL SC SCH ×2 (14:42→20:45)
[2023-08-17] MEDS: Famotidine 20 MG TAB PO SCH (20:45)
[2023-08-17] MEDS: traZODone HCl 50 MG TAB PO SCH (20:45)
[2023-08-17] MEDS: Latanoprost 0.005% Ophth Soln 2.5 ml Bottle EA EYE SCH (20:46)
[2023-08-17] MEDS: Melatonin 3 MG TAB PO SCH (20:46)
[2023-08-18 04:38] LABS: #Eosinphils 0.2 thou/uL (0.0-0.7); #Monocytes 0.7 thou/uL (0.11-0.59); #Neutrophils 4.9 thou/uL (1.40-6.50); %Basophils 0.4 % (0.0-1.0); %Eosinophils 3.1 % (0.0-10.0); %Lymphocytes 11.8 % (21.0-51.0); %Monocytes 10.1 % (0.0-10.0); %Neutrophils 73.9 % (42.0-75.0); Hematocrit 30.6 % (36.0-47.0); Hemoglobin 9.5 g/dL (12.0-16.0); Mean Corpuscular Hemoglobin 27.9 pg (27.0-31.0); Mean Platelet Volume 11.2 fL (7.4-10.4); Platelet Count 313 10x3/uL (130-400); RBC Distribution Width 16.9 % (11.5-14.5); White Blood Cell (WBC) Count 6.7 10x3/uL (4.8-10.8)
[2023-08-18 05:08] LABS: BUN (Urea Nitrogen) 22 mg/dL (9.8-20.1); Calc. Creatinine Clearance 53 mL/min (70-130); Calcium 7.9 mg/dL (7.8-10.44); Estimated GFR 68; Glucose 97 mg/dL (83-110)
[2023-08-18] MEDS: Levothyroxine Sodium 75 MCG TAB PO SCH (05:15)
[2023-08-18 05:22] LABS: Chloride 91 mmol/L (98-107); Potassium 3.3 mmol/L (3.5-5.1); Sodium 138 mmol/L (136-145)
[2023-08-18 05:25] LABS: Anion Gap 15 mmol/L (10-20); Carbon Dioxide 35 mmol/L (23-31)
[2023-08-18] MEDS ORDERED: Potassium Chloride 20 MEQ TAB PO SCH (08:00)
[2023-08-18] MEDS: Montelukast Sodium 10 mg Tablet PO SCH (08:27)
[2023-08-18] MEDS: Acetaminophen 500 MG TAB PO SCH ×3 (08:27→20:54)
[2023-08-18] MEDS: Aspirin Chewable 81 MG TAB PO SCH (08:27)
[2023-08-18] MEDS: Heparin 5,000 UNITS/ML VIAL SC SCH ×3 (08:28→20:55)
[2023-08-18] MEDS: Furosemide 40 MG/4 ML VIAL SLOW IVP SCH (08:44)
[2023-08-18] MEDS ORDERED: Bisacodyl 10 MG SUPP PR PRN (09:33)
[2023-08-18] MEDS ORDERED: Polyethylene Glycol 3350 17 GM Packet PO PRN (09:33)
[2023-08-18] MEDS: Ketorolac Tromethamine 30 MG/ML VIAL IVP PRN (11:13)
[2023-08-18] MEDS: Morphine 2 MG/ML VIAL SLOW IVP PRN (11:14)
[2023-08-18] MEDS: LevoFLOXacin 750 MG TAB PO SCH (14:01)
[2023-08-18] MEDS: traZODone HCl 50 MG TAB PO SCH (20:54)
[2023-08-18] MEDS: Famotidine 20 MG TAB PO SCH (20:54)
[2023-08-18] MEDS: Melatonin 3 MG TAB PO SCH (20:54)
[2023-08-18] MEDS: Latanoprost 0.005% Ophth Soln 2.5 ml Bottle EA EYE SCH (20:55)
[2023-08-19 04:30] LABS: #Eosinphils 0.2 thou/uL (0.0-0.7); #Monocytes 0.9 thou/uL (0.11-0.59); #Neutrophils 5.3 thou/uL (1.40-6.50); %Basophils 0.4 % (0.0-1.0); %Eosinophils 2.3 % (0.0-10.0); %Lymphocytes 13.3 % (21.0-51.0); %Monocytes 11.5 % (0.0-10.0); %Neutrophils 71.8 % (42.0-75.0); Hematocrit 29.8 % (36.0-47.0); Hemoglobin 9.3 g/dL (12.0-16.0); Mean Corpuscular HGB CONC 31.2 g/dL (32.0-36.0); Mean Corpuscular Hemoglobin 27.9 pg (27.0-31.0); Mean Corpuscular Volume 89.5 fl (78.0-98.0); Mean Platelet Volume 10.5 fL (7.4-10.4); Platelet Count 307 10x3/uL (130-400); RBC Distribution Width 16.7 % (11.5-14.5); Red Blood Cell (RBC) Count 3.33 mill/uL (4.20-5.40); White Blood Cell (WBC) Count 7.4 10x3/uL (4.8-10.8)
[2023-08-19 04:57] LABS: BUN (Urea Nitrogen) 24 mg/dL (9.8-20.1); Calc. Creatinine Clearance 43 mL/min (70-130); Estimated GFR 52; Glucose 97 mg/dL (83-110)
[2023-08-19 05:06] LABS: Anion Gap 16 mmol/L (10-20); Carbon Dioxide 34 mmol/L (23-31); Chloride 90 mmol/L (98-107); Potassium 3.8 mmol/L (3.5-5.1); Sodium 136 mmol/L (136-145)
[2023-08-19] MEDS: Levothyroxine Sodium 75 MCG TAB PO SCH (05:42)
[2023-08-19] MEDS: Furosemide 40 MG/4 ML VIAL SLOW IVP SCH (05:42)
[2023-08-19] MEDS: Heparin 5,000 UNITS/ML VIAL SC SCH ×3 (08:07→20:27)
[2023-08-19] MEDS: Aspirin Chewable 81 MG TAB PO SCH (08:07)
[2023-08-19] MEDS: Montelukast Sodium 10 mg Tablet PO SCH (08:07)
[2023-08-19] MEDS: Acetaminophen 500 MG TAB PO SCH ×3 (08:07→20:26)
[2023-08-19] MEDS: Polyethylene Glycol 3350 17 GM Packet PO SCH (08:07)
[2023-08-19] MEDS ORDERED: Bisacodyl 10 MG SUPP PR SCH (09:30)
[2023-08-19] MEDS: Ketorolac Tromethamine 30 MG/ML VIAL IVP PRN (11:14)
[2023-08-19] MEDS: Morphine 2 MG/ML VIAL SLOW IVP PRN (11:15)
[2023-08-19] MEDS: Albumin 25% 25 GM/100 ML BOT IVPB SCH ×2 (15:54→20:27)
[2023-08-19] MEDS: Melatonin 3 MG TAB PO SCH (20:26)
[2023-08-19] MEDS: Latanoprost 0.005% Ophth Soln 2.5 ml Bottle EA EYE SCH (20:26)
[2023-08-19] MEDS: traZODone HCl 50 MG TAB PO SCH (20:26)
[2023-08-19] MEDS: Famotidine 20 MG TAB PO SCH (20:26)
[2023-08-20 04:21] LABS: #Eosinphils 0.1 thou/uL (0.0-0.7); #Monocytes 0.9 thou/uL (0.11-0.59); %Basophils 0.2 % (0.0-1.0); %Eosinophils 1.1 % (0.0-10.0); %Lymphocytes 8.4 % (21.0-51.0); %Monocytes 10.2 % (0.0-10.0); %Neutrophils 79.5 % (42.0-75.0); Hematocrit 27.3 % (36.0-47.0); Hemoglobin 8.6 g/dL (12.0-16.0); Mean Corpuscular HGB CONC 31.5 g/dL (32.0-36.0); Mean Corpuscular Hemoglobin 27.9 pg (27.0-31.0); Mean Corpuscular Volume 88.6 fl (78.0-98.0); Mean Platelet Volume 10.1 fL (7.4-10.4); Platelet Count 275 10x3/uL (130-400); RBC Distribution Width 16.9 % (11.5-14.5); Red Blood Cell (RBC) Count 3.08 mill/uL (4.20-5.40); White Blood Cell (WBC) Count 8.8 10x3/uL (4.8-10.8)
[2023-08-20 04:42] LABS: BUN (Urea Nitrogen) 20 mg/dL (9.8-20.1); Calc. Creatinine Clearance 44 mL/min (70-130); Calcium 8.3 mg/dL (7.8-10.44); Estimated GFR 56; Glucose 92 mg/dL (83-110)
[2023-08-20 04:53] LABS: Anion Gap 16 mmol/L (10-20); Carbon Dioxide 34 mmol/L (23-31); Chloride 90 mmol/L (98-107); Potassium 3.3 mmol/L (3.5-5.1); Sodium 137 mmol/L (136-145)
[2023-08-20] MEDS: Furosemide 40 MG/4 ML VIAL SLOW IVP SCH (05:46)
[2023-08-20] MEDS: Levothyroxine Sodium 75 MCG TAB PO SCH (05:46)
[2023-08-20] MEDS: Aspirin Chewable 81 MG TAB PO SCH (08:00)
[2023-08-20] MEDS: Polyethylene Glycol 3350 17 GM Packet PO SCH (08:00)
[2023-08-20] MEDS ORDERED: Potassium Chloride 20 MEQ TAB PO SCH (08:00)
[2023-08-20] MEDS: Montelukast Sodium 10 mg Tablet PO SCH (08:00)
[2023-08-20] MEDS: Acetaminophen 500 MG TAB PO SCH ×3 (08:01→20:37)
[2023-08-20] MEDS: Heparin 5,000 UNITS/ML VIAL SC SCH (08:01)
[2023-08-20] MEDS ORDERED: Hydrocortisone Acetate 25 MG Suppository PR PRN (08:57)
[2023-08-20] MEDS: Fleet Saline Enema 133 ML BOT PR SCH ×3 (13:27→18:10)
[2023-08-20 13:34] LABS: Hematocrit 30.6 % (36.0-47.0); Hemoglobin 9.5 g/dL (12.0-16.0); Mean Corpuscular Hemoglobin 27.8 pg (27.0-31.0); Mean Corpuscular Volume 89.5 fl (78.0-98.0); Mean Platelet Volume 10.5 fL (7.4-10.4); Platelet Count 311 10x3/uL (130-400); RBC Distribution Width 16.9 % (11.5-14.5); Red Blood Cell (RBC) Count 3.42 mill/uL (4.20-5.40); White Blood Cell (WBC) Count 9.9 10x3/uL (4.8-10.8)
[2023-08-20] MEDS: LevoFLOXacin 750 MG TAB PO SCH (14:28)
[2023-08-20] MEDS: traZODone HCl 50 MG TAB PO SCH (20:37)
[2023-08-20] MEDS: Melatonin 3 MG TAB PO SCH (20:37)
[2023-08-20] MEDS: Latanoprost 0.005% Ophth Soln 2.5 ml Bottle EA EYE SCH (20:37)
[2023-08-21] MEDS: Fleet Saline Enema 133 ML BOT PR SCH (02:02)
[2023-08-21] MEDS: Levothyroxine Sodium 75 MCG TAB PO SCH (06:28)
[2023-08-21] MEDS: Furosemide 40 MG/4 ML VIAL SLOW IVP SCH (06:28)
[2023-08-21 06:40] LABS: #Eosinphils 0.1 thou/uL (0.0-0.7); #Monocytes 0.9 thou/uL (0.11-0.59); #Neutrophils 5.8 thou/uL (1.40-6.50); %Basophils 0.3 % (0.0-1.0); %Eosinophils 1.5 % (0.0-10.0); %Lymphocytes 12.5 % (21.0-51.0); %Monocytes 11.5 % (0.0-10.0); %Neutrophils 73.1 % (42.0-75.0); Hematocrit 28.7 % (36.0-47.0); Hemoglobin 8.9 g/dL (12.0-16.0); Mean Corpuscular Hemoglobin 27.5 pg (27.0-31.0); Mean Corpuscular Volume 88.6 fl (78.0-98.0); Mean Platelet Volume 10.2 fL (7.4-10.4); Platelet Count 292 10x3/uL (130-400); RBC Distribution Width 16.8 % (11.5-14.5); Red Blood Cell (RBC) Count 3.24 mill/uL (4.20-5.40); White Blood Cell (WBC) Count 7.9 10x3/uL (4.8-10.8)
[2023-08-21 07:06] LABS: Anion Gap 12 mmol/L (10-20); BUN (Urea Nitrogen) 24 mg/dL (9.8-20.1); Calc. Creatinine Clearance 42 mL/min (70-130); Calcium 8.3 mg/dL (7.8-10.44); Carbon Dioxide 37 mmol/L (23-31); Chloride 92 mmol/L (98-107); Estimated GFR 55; Glucose 103 mg/dL (83-110); Potassium 3.5 mmol/L (3.5-5.1); Sodium 137 mmol/L (136-145)
[2023-08-21] MEDS: Acetaminophen 500 MG TAB PO SCH ×3 (07:49→20:42)
[2023-08-21] MEDS: Montelukast Sodium 10 mg Tablet PO SCH (07:50)
[2023-08-21] MEDS: Polyethylene Glycol 3350 17 GM Packet PO SCH (07:50)
[2023-08-21] MEDS ORDERED: Potassium Chloride 20 MEQ TAB PO SCH (08:00)
[2023-08-21] MEDS: Melatonin 3 MG TAB PO SCH (20:42)
[2023-08-21] MEDS: Latanoprost 0.005% Ophth Soln 2.5 ml Bottle EA EYE SCH (20:43)
[2023-08-21] MEDS: traZODone HCl 50 MG TAB PO SCH (20:43)
[2023-08-22] MEDS: Levothyroxine Sodium 75 MCG TAB PO SCH (05:41)
[2023-08-22] MEDS: Furosemide 40 MG/4 ML VIAL SLOW IVP SCH (05:41)
[2023-08-22 05:52] LABS: #Basophils 0.1 thou/uL (0.0-0.2); #Eosinphils 0.2 thou/uL (0.0-0.7); #Monocytes 0.9 thou/uL (0.11-0.59); #Neutrophils 5.6 thou/uL (1.40-6.50); %Basophils 0.6 % (0.0-1.0); %Eosinophils 1.9 % (0.0-10.0); %Lymphocytes 15.7 % (21.0-51.0); %Monocytes 11.2 % (0.0-10.0); %Neutrophils 68.5 % (42.0-75.0); Hematocrit 29.5 % (36.0-47.0); Hemoglobin 9.3 g/dL (12.0-16.0); Mean Corpuscular HGB CONC 31.5 g/dL (32.0-36.0); Mean Corpuscular Hemoglobin 27.9 pg (27.0-31.0); Mean Corpuscular Volume 88.6 fl (78.0-98.0); Mean Platelet Volume 10.5 fL (7.4-10.4); Platelet Count 307 10x3/uL (130-400); RBC Distribution Width 17.1 % (11.5-14.5); Red Blood Cell (RBC) Count 3.33 mill/uL (4.20-5.40); White Blood Cell (WBC) Count 8.1 10x3/uL (4.8-10.8)
[2023-08-22 06:21] LABS: Anion Gap 15 mmol/L (10-20); BUN (Urea Nitrogen) 25 mg/dL (9.8-20.1); Calc. Creatinine Clearance 43 mL/min (70-130); Carbon Dioxide 32 mmol/L (23-31); Chloride 93 mmol/L (98-107); Estimated GFR 57; Glucose 98 mg/dL (83-110); Potassium 3.9 mmol/L (3.5-5.1); Sodium 136 mmol/L (136-145)
[2023-08-22] MEDS: Acetaminophen 500 MG TAB PO SCH ×3 (10:35→20:51)
[2023-08-22] MEDS: Polyethylene Glycol 3350 17 GM Packet PO SCH (10:36)
[2023-08-22] MEDS: Montelukast Sodium 10 mg Tablet PO SCH (10:36)
[2023-08-22] MEDS: LevoFLOXacin 750 MG TAB PO SCH (15:26)
[2023-08-22] MEDS: Melatonin 3 MG TAB PO SCH (20:50)
[2023-08-22] MEDS: Latanoprost 0.005% Ophth Soln 2.5 ml Bottle EA EYE SCH (20:50)
[2023-08-22] MEDS: traZODone HCl 50 MG TAB PO SCH (20:50)
[2023-08-22] MEDS ORDERED: Calcium Carbonate 500 MG ChewTAB PO PRN (22:38)
[2023-08-22] MEDS ORDERED: Mag-Al 1200 mg/1200 mg/30 ML UDCUP PO PRN (22:38)
[2023-08-23] MEDS: Furosemide 40 MG TAB PO SCH (06:37)
[2023-08-23] MEDS: Levothyroxine Sodium 75 MCG TAB PO SCH (06:37)
[2023-08-23 07:07] LABS: #Eosinphils 0.2 thou/uL (0.0-0.7); #Monocytes 0.9 thou/uL (0.11-0.59); #Neutrophils 5.2 thou/uL (1.40-6.50); %Basophils 0.5 % (0.0-1.0); %Eosinophils 2.2 % (0.0-10.0); %Lymphocytes 16.2 % (21.0-51.0); %Monocytes 11.1 % (0.0-10.0); %Neutrophils 67.4 % (42.0-75.0); Hematocrit 29.4 % (36.0-47.0); Mean Corpuscular HGB CONC 30.6 g/dL (32.0-36.0); Mean Corpuscular Hemoglobin 27.4 pg (27.0-31.0); Mean Corpuscular Volume 89.6 fl (78.0-98.0); Platelet Count 317 10x3/uL (130-400); RBC Distribution Width 16.9 % (11.5-14.5); Red Blood Cell (RBC) Count 3.28 mill/uL (4.20-5.40); White Blood Cell (WBC) Count 7.7 10x3/uL (4.8-10.8)
[2023-08-23 08:02] LABS: Anion Gap 12 mmol/L (10-20); BUN (Urea Nitrogen) 23 mg/dL (9.8-20.1); Calc. Creatinine Clearance 44 mL/min (70-130); Calcium 8.3 mg/dL (7.8-10.44); Carbon Dioxide 33 mmol/L (23-31); Chloride 94 mmol/L (98-107); Estimated GFR 60; Glucose 95 mg/dL (83-110); Potassium 3.2 mmol/L (3.5-5.1); Sodium 136 mmol/L (136-145)
[2023-08-23] MEDS ORDERED: Potassium Chloride 20 MEQ TAB PO SCH ×2 (08:45→09:00)
[2023-08-23 09:05] VITALS: BMI 22.9
[2023-08-23] MEDS: Acetaminophen 500 MG TAB PO SCH ×3 (09:27→20:38)
[2023-08-23] MEDS: Polyethylene Glycol 3350 17 GM Packet PO SCH (09:28)
[2023-08-23] MEDS: Montelukast Sodium 10 mg Tablet PO SCH (09:28)
[2023-08-23 15:58] LABS: Potassium 3.7 mmol/L (3.5-5.1)
[2023-08-23] MEDS: traZODone HCl 50 MG TAB PO SCH (20:38)
[2023-08-23] MEDS: Latanoprost 0.005% Ophth Soln 2.5 ml Bottle EA EYE SCH (20:38)
[2023-08-23] MEDS: Melatonin 3 MG TAB PO SCH (20:38)
[2023-08-24 03:52] VITALS: TEMP 97.7
[2023-08-24 04:58] LABS: #Eosinphils 0.2 thou/uL (0.0-0.7); #Monocytes 0.8 thou/uL (0.11-0.59); #Neutrophils 4.8 thou/uL (1.40-6.50); %Basophils 0.5 % (0.0-1.0); %Eosinophils 2.3 % (0.0-10.0); %Lymphocytes 19.1 % (21.0-51.0); %Monocytes 10.3 % (0.0-10.0); Hematocrit 28.8 % (36.0-47.0); Hemoglobin 8.9 g/dL (12.0-16.0); Mean Corpuscular HGB CONC 30.9 g/dL (32.0-36.0); Mean Corpuscular Hemoglobin 27.6 pg (27.0-31.0); Mean Corpuscular Volume 89.2 fl (78.0-98.0); Mean Platelet Volume 9.6 fL (7.4-10.4); Platelet Count 301 10x3/uL (130-400); RBC Distribution Width 17.2 % (11.5-14.5); Red Blood Cell (RBC) Count 3.23 mill/uL (4.20-5.40); White Blood Cell (WBC) Count 7.5 10x3/uL (4.8-10.8)
[2023-08-24 05:32] LABS: Anion Gap 9 mmol/L (10-20); BUN (Urea Nitrogen) 21 mg/dL (9.8-20.1); Calc. Creatinine Clearance 45 mL/min (70-130); Calcium 8.2 mg/dL (7.8-10.44); Carbon Dioxide 35 mmol/L (23-31); Chloride 96 mmol/L (98-107); Estimated GFR 61; Glucose 99 mg/dL (83-110); Magnesium 2.4 mg/dL (1.6-2.6); Potassium 3.5 mmol/L (3.5-5.1); Sodium 136 mmol/L (136-145)
[2023-08-24] MEDS: Levothyroxine Sodium 75 MCG TAB PO SCH (05:32)
[2023-08-24] MEDS: Furosemide 40 MG TAB PO SCH (08:21)
[2023-08-24] MEDS: Acetaminophen 500 MG TAB PO SCH (08:21)
[2023-08-24] MEDS: Montelukast Sodium 10 mg Tablet PO SCH (08:21)
[2023-08-24] MEDS: Polyethylene Glycol 3350 17 GM Packet PO SCH (08:22)
[2023-08-24] MEDS ORDERED: Potassium Chloride 20 MEQ TAB PO SCH (09:30)
[2023-08-24 10:49] VITALS: BP 111/78
== END 2023-08-24 13:36 | DRG 270 ==
LOC: ERS 12:01 → CCU 17:12 → SDC/OP 17:12 → CCU 18:58 → IMCU/EMU 08-14 06:24
PROVIDERS: ADMIT Internal Medicine; ATTEND Internal Medicine
PROC: 0W9D0ZZ Drainage of Pericardial Cavity, Open Approach (ICD-10-PCS; principal; 2023-08-02)
PROC: 06HY33Z Insertion of Infusion Device into Lower Vein, Percutaneous Approach (ICD-10-PCS; 2023-08-02)
PROC: 5A1955Z Respiratory Ventilation, Greater than 96 Consecutive Hours (ICD-10-PCS; 2023-08-02)
PROC: 3E043XZ Introduction of Vasopressor into Central Vein, Percutaneous Approach (ICD-10-PCS; 2023-08-02)
PROC: 30243J1 Transfusion of Nonautologous Serum Albumin into Central Vein, Percutaneous Approach (ICD-10-PCS; 2023-08-02)
PROC: 02L70CK Occlusion of Left Atrial Appendage with Extraluminal Device, Open Approach (ICD-10-PCS; 2023-08-03)
PROC: 30243K1 Transfusion of Nonautologous Frozen Plasma into Central Vein, Percutaneous Approach (ICD-10-PCS; 2023-08-03)
PROC: 30243N1 Transfusion of Nonautologous Red Blood Cells into Central Vein, Percutaneous Approach (ICD-10-PCS; 2023-08-03)
PROC: 30243M1 Transfusion of Nonautologous Plasma Cryoprecipitate into Central Vein, Percutaneous Approach (ICD-10-PCS; 2023-08-03)
PROC: 4A133R1 Monitoring of Arterial Saturation, Peripheral, Percutaneous Approach (ICD-10-PCS; 2023-08-03)
PROC: 5A09457 Assistance with Respiratory Ventilation, 24-96 Consecutive Hours, Continuous Positive Airway Pressure (ICD-10-PCS; 2023-08-09)
PROC: 0W993ZZ Drainage of Right Pleural Cavity, Percutaneous Approach (ICD-10-PCS; 2023-08-10)
PROC: 0W9B3ZZ Drainage of Left Pleural Cavity, Percutaneous Approach (ICD-10-PCS; 2023-08-12)
PROC: 0W9B30Z Drainage of Left Pleural Cavity with Drainage Device, Percutaneous Approach (ICD-10-PCS; 2023-08-15)
PROC: 0W9930Z Drainage of Right Pleural Cavity with Drainage Device, Percutaneous Approach (ICD-10-PCS; 2023-08-15)
DX: I31.39 Other pericardial effusion (noninflammatory) (principal); I50.43 Acute on chronic combined systolic (congestive) and diastolic (congestive) heart failure; R57.1 Hypovolemic shock; J96.01 Acute respiratory failure with hypoxia; J18.9 Pneumonia, unspecified organism; E87.1 Hypo-osmolality and hyponatremia; N17.9 Acute kidney failure, unspecified; D68.9 Coagulation defect, unspecified; D62 Acute posthemorrhagic anemia; I48.11 Longstanding persistent atrial fibrillation; R04.89 Hemorrhage from other sites in respiratory passages; E46 Unspecified protein-calorie malnutrition; E87.0 Hyperosmolality and hypernatremia; I31.4 Cardiac tamponade; E03.9 Hypothyroidism, unspecified; I11.0 Hypertensive heart disease with heart failure; Z90.89 Acquired absence of other organs; Z88.0 Allergy status to penicillin; Z79.01 Long term (current) use of anticoagulants; Z79.899 Other long term (current) drug therapy; Z79.82 Long term (current) use of aspirin; Z82.49 Family history of ischemic heart disease and other diseases of the circulatory system; J44.9 Chronic obstructive pulmonary disease, unspecified; Z51.5 Encounter for palliative care; Z68.22 Body mass index [BMI] 22.0-22.9, adult; Z79.4 Long term (current) use of insulin; I35.0 Nonrheumatic aortic (valve) stenosis; E88.09 Other disorders of plasma-protein metabolism, not elsewhere classified; K56.41 Fecal impaction
CPT/HCPCS: 36415; 36416; 36430; 36600; 70450; 70496; 70498; 71045; 71250; 80048; 80053; 80202; 81001; 82150; 82533; 82805; 82945; 83605; 83615; 83735; 83880; 83930; 83935; 84100; 84157; 84300; 84478; 84484; 85014; 85025; 85027; 85049; 85060; 85300; 85362; 85379; 85384; 85610; 85611; 85730; 85732; 86850; 86900; 86901; 87040; 87070; 87116; 87205; 87206; 88112; 88305; 89051; 93005; 93306; 94002; 94003; 94640; 94660; 96361; 96374; 96375; C1713; J0171; J0613; J1642; J1644; J1815; J1885; J1940; J1956; J2060; J2250; J2272; J2405; J2597; J2704; J2720; J2997; J3010; J3370; J3370-JW; J3475; J3480; J3490; J7030; J7050; J7070; J7168; J7611; P9012; P9016; P9035; P9045; P9047; P9059; Q9967; S0017; S0020; S0028

== ENCOUNTER 2023-11-02 11:59 | Outpatient (CLI) | payer MEDICARE | END 2023-11-02 12:00 | disposition home or self-care (01) | LOC: RAD 11:59 | PROVIDERS: ATTEND Internal Medicine | DX: R06.00 Dyspnea, unspecified (principal); I51.7 Cardiomegaly; J90 Pleural effusion, not elsewhere classified; R91.8 Other nonspecific abnormal finding of lung field | CPT/HCPCS: 71046 ==

== ENCOUNTER 2024-02-08 11:19 | Outpatient (CLI) | payer MEDICARE | END 2024-02-08 11:20 | disposition home or self-care (01) | LOC: BICRAD 11:19 | PROVIDERS: ATTEND Nurse Practitioner Family | DX: M47.26 Other spondylosis with radiculopathy, lumbar region (principal); M43.16 Spondylolisthesis, lumbar region | CPT/HCPCS: 72100 ==